=== PATIENT | female | born 1955 | race Caucasian/White ===

== ENCOUNTER 2017-06-02 19:00 | Emergency (ER) | payer MEDICARE, MEDICAID ==
[2017-06-02 21:33] LABS: #Basophils 0.1 thou/uL (0.0-0.2); #Eosinphils 0.2 thou/uL (0.0-0.7); #Lymphocytes 1.6 thou/uL (1.20-3.40); #Monocytes 0.6 thou/uL (0.11-0.59); #Neutrophils 2.5 thou/uL (1.40-6.50); %Basophils 1.1 % (0.0-1.0); %Lymphocytes 32.6 % (21.0-51.0); %Monocytes 12.1 % (0.0-10.0); Hematocrit 33.1 % (36.0-47.0); Mean Platelet Volume 7.3 fL (7.4-10.4); Red Blood Cell (RBC) Count 3.79 mill/uL (4.20-5.40); White Blood Cell (WBC) Count 4.9 thou/uL (4.8-10.8)
[2017-06-02 21:52] LABS: Troponin I Less than 0.010 ng/mL (< 0.028)
[2017-06-02 21:53] LABS: ALT (SGPT) 13 U/L (8-55); AST (SGOT) 20 U/L (5-34); Alkaline Phosphatase 91 U/L (40-150); Anion Gap 18 mmol/L (10-20); BUN (Urea Nitrogen) 40 mg/dL (9.8-20.1); Bilirubin, Total 0.3 mg/dL (0.2-1.2); Calc. Creatinine Clearance 0 mL/min (70-130); Calcium 8.3 mg/dL (7.8-10.44); Carbon Dioxide 16 mmol/L (22-29); Chloride 107 mmol/L (98-107); Estimated GFR-MDRD 47; Globulin 2.9 g/dL (2.4-3.5); Protein, Total 6.5 g/dL (6.0-8.3)
== END 2017-06-02 23:20 | disposition home or self-care (01) ==
LOC: ERS 19:00
DX: R42 Dizziness and giddiness (principal); J43.9 Emphysema, unspecified; I11.0 Hypertensive heart disease with heart failure; I50.9 Heart failure, unspecified; F17.210 Nicotine dependence, cigarettes, uncomplicated; Z86.73 Personal history of transient ischemic attack (TIA), and cerebral infarction without residual deficits; Z79.82 Long term (current) use of aspirin; Z79.899 Other long term (current) drug therapy
CPT/HCPCS: 36415; 80053; 82553; 83880; 84484; 85025; 96360; 96361

== ENCOUNTER 2017-09-16 18:29 | Emergency (ER) | payer MEDICARE, MEDICAID ==
[~2017-09-16 18:29] MED LIST: ISOVUE-370 76%-LOCM 1 ML ONE
[2017-09-16 20:16] LABS: #Lymphocytes 0.9 thou/uL (1.20-3.40); #Monocytes 0.6 thou/uL (0.11-0.59); %Basophils 0.3 % (0.0-1.0); %Eosinophils 0.3 % (0.0-10.0); %Monocytes 4.1 % (0.0-10.0); %Neutrophils 89.4 % (42.0-75.0); Hemoglobin 11.2 g/dL (12.0-16.0); Mean Corpuscular HGB CONC 33.1 g/dL (32.0-36.0); Mean Corpuscular Hemoglobin 28.3 pg (27.0-31.0); Mean Corpuscular Volume 85.4 fl (81.0-99.0); Platelet Count 183 thou/uL (130-400); RBC Distribution Width 12.7 % (11.5-14.5); Red Blood Cell (RBC) Count 3.97 mill/uL (4.20-5.40); White Blood Cell (WBC) Count 14.5 thou/uL (4.8-10.8)
[2017-09-16 20:21] LABS: Prothrombin Time 13.3 SEC (12.0-14.7)
[2017-09-16 20:42] LABS: ALT (SGPT) 7 U/L (8-55); AST (SGOT) 14 U/L (5-34); Albumin 3.9 g/dL (3.4-4.8); Alkaline Phosphatase 79 U/L (40-150); Anion Gap 16 mmol/L (10-20); BUN (Urea Nitrogen) 31 mg/dL (9.8-20.1); Bilirubin, Total 0.6 mg/dL (0.2-1.2); Calc. Creatinine Clearance 0 mL/min (70-130); Calcium 9.7 mg/dL (7.8-10.44); Carbon Dioxide 22 mmol/L (23-31); Chloride 101 mmol/L (98-107); Estimated GFR-MDRD 52; Globulin 3.1 g/dL (2.4-3.5); Glucose 100 mg/dL (80-115); Potassium 5.3 mmol/L (3.5-5.1); Sodium 134 mmol/L (136-145)
[2017-09-16 20:44] LABS: CKMB 0.4 ng/mL (0-6.6); Troponin I Less than 0.010 ng/mL (< 0.028)
--- NOTE | 2017-09-16 20:55 | RAD ---
PORTABLE CHEST ONE VIEW 09/16/17 at 6:31 p.m. HISTORY: Cough. FINDINGS: Comparison made with exam dated 01/02/17. Changes of COPD are again seen. The heart size is normal. The lungs are well expanded without conflue nt areas of consolidation, pneumothorax or pleural effusions. IMPRESSION: No evidence of acute cardiopulmonary process. POS: [facility]
[2017-09-16 21:07] LABS: Bilirubin Negative (Negative); Blood, Urine Small (Negative); Clarity TURBID (Clear); Glucose, Urine (Dipstick) Negative (Negative); Leukocyte Large (Negative); Nitrite Negative (Negative); Protein, Urine (Dipstick) 100 mg/dL (Neg-Trace); Specific Gravity, Urine 1.009 (1.002-1.036); Urobilinogen 0.2 mg/dL (0.2-1.0); pH, Urine 7.5 (5.0-9.0)
[2017-09-16 21:09] LABS: Bacteria/HPF 4+ HPF (None Seen); Pathc Cast-AUWi Flag 0.52 (0-2.49); RBC/HPF 0-3 HPF (0-3); Squamous Epithelial 0-3 HPF (0-3)
[2017-09-16 21:18] LABS: Yeast-AUWi Flag 34.6 (0-25.0)
[2017-09-16 21:25] LABS: Hyaline Casts/LPF 0-3 HYALINE CAST LPF (0-3 Hyaline); Yeast-All Forms None Seen HPF (None Seen)
[2017-09-16] MEDS ORDERED: Piperacillin/Tazobactam 4.5 GM in Sodium Chloride 0.9% 100 ML IVPB SCH (22:30)
--- NOTE | 2017-09-16 22:59 | CT ---
CT ABDOMEN AND PELVIS WITH IV CONTRAST 09/16/17 HISTORY: Abdominal pain. Fever, cough, nausea and vomiting, shortness of breath. FINDINGS: Comparison made with exam of 02/21/16. Chronic changes in the lung bases are again noted. The 5-6 mm parenchymal nodule in the right lung ba se is stable. No free air, free fluid or lymphadenopathy seen in the abdomen or pelvis. No calcified gallstones are seen. The liver, spleen, pancreas, and adrenal glands are normal. Scarring in the renal cortices bilaterall y is stable. No hydroureteronephrosis is seen. There is fecal material in the colon and contrast in t he rectosigmoid. A right sided colostomy and a left sided ileostomy are again seen. the small bowel l oops are not abnormally dilated. There is continued absence of contrast in the abdominal aorta and il iac vasculature distal to the origin of the renal arteries. The uterus is present. Postop changes in the abdomen and pelvis are redemonstrated. Chronic bony changes are again seen. IMPRESSION: No definite evidence of acute process. POS: [facility]
--- NOTE | 2017-10-19 21:25 | EKG ---
Test Reason : Blood Pressure : / mmHG Vent. Rate : 090 BPM Atrial Rate : 090 BPM P-R Int : 130 ms QRS Dur : 072 ms QT Int : 348 ms P-R-T Axes : 082 023 075 degrees QTc Int : 425 ms Normal sinus rhythm Right atrial enlargement Borderline ECG Confirmed by ANITA Us, GENNARO ([id number]), map editor YANI DECKER ([id number]) on 10/19/2017 9:25:34 PM Referred By: Confirmed By:GENNARO HOWARD M.D.
== END 2017-09-17 01:19 | disposition home or self-care (01) ==
LOC: ERS 18:29
DX: J44.1 Chronic obstructive pulmonary disease with (acute) exacerbation (principal); N39.0 Urinary tract infection, site not specified; I11.0 Hypertensive heart disease with heart failure; I50.9 Heart failure, unspecified; F17.210 Nicotine dependence, cigarettes, uncomplicated; Z79.82 Long term (current) use of aspirin; Z79.899 Other long term (current) drug therapy; Z71.6 Tobacco abuse counseling; Z86.73 Personal history of transient ischemic attack (TIA), and cerebral infarction without residual deficits
CPT/HCPCS: 36415; 71045; 74177; 80053; 81003; 81015; 82553; 83735; 83880; 84484; 85025; 85610; 87040; 87086; 87804; 93005; 94640; 94760; 96361; 96365; 96375; 99406; J0696; J2543; J7050; J7620

== ENCOUNTER 2017-10-08 04:29 | Inpatient (IN) | payer MEDICARE, MEDICAID ==
[2017-10-08 06:39] LABS: Band 4 % (5-11); Eosinophils 1 % (0-10); Hemoglobin 10.2 g/dL (12.0-16.0); Lymphocytes 16 % (21-51); MDiff Complete? YES; Mean Corpuscular HGB CONC 31.7 g/dL (32.0-36.0); Mean Corpuscular Volume 85.4 fl (81.0-99.0); Monocytes 2 % (0-10); Neutrophil 77 % (42-75); PLT Morphology Comment Appears Adequate; Platelet Count 158 thou/uL (130-400); RBC Distribution Width 13.7 % (11.5-14.5); Red Blood Cell (RBC) Count 3.77 mill/uL (4.20-5.40); White Blood Cell (WBC) Count 5.6 thou/uL (4.8-10.8)
[2017-10-08 06:45] LABS: ALT (SGPT) 21 U/L (8-55); AST (SGOT) 27 U/L (5-34); Albumin 3.3 g/dL (3.4-4.8); Alkaline Phosphatase 68 U/L (40-150); Anion Gap 14 mmol/L (10-20); BUN (Urea Nitrogen) 46 mg/dL (9.8-20.1); Bilirubin, Total 0.2 mg/dL (0.2-1.2); Calc. Creatinine Clearance 0 mL/min (70-130); Calcium 9.2 mg/dL (7.8-10.44); Carbon Dioxide 19 mmol/L (23-31); Chloride 107 mmol/L (98-107); Estimated GFR-MDRD 56; Glucose 141 mg/dL (80-115); Protein, Total 6.3 g/dL (6.0-8.3); Sodium 133 mmol/L (136-145)
[2017-10-08 06:57] LABS: Potassium 7.3 mmol/L (3.5-5.1)
[2017-10-08] MEDS ORDERED: Calcium Gluc 4.6 MEQ/10 ML (100 MG/ML) ONE ×2 (07:34→07:37)
[2017-10-08] MEDS ORDERED: Dextrose 50% Abboject 50 ML SYRINGE ONE (07:34)
[2017-10-08] MEDS ORDERED: Insulin Regular 300 UNITS/3 ML VIAL ONE (07:34)
--- NOTE | 2017-10-08 07:52 | RAD ---
PORTABLE CHEST ONE VIEW: Date: 10-08-17 Time: 5:37 a.m. History: Dyspnea. Weakness. FINDINGS: Comparison made with 09-16-17. Changes of COPD are again seen. The heart size is normal. No confluent areas of consolidation, pneumo thorax or pleural effusions identified. IMPRESSION: No acute process. POS: [facility]
[2017-10-08] MEDS ORDERED: Albuterol Sulfate 2.5 mg/0.5 ml Neb ONE (07:53)
[2017-10-08] MEDS ORDERED: Sodium Bicarbonate 2.4 MEQ/5 ML ONE (07:54)
[2017-10-08] MEDS ORDERED: Albuterol Sulfate 2.5 mg/3 ml Neb ONE (07:54)
[2017-10-08] MEDS ORDERED: Furosemide 40 MG/4 ML VIAL SLOW IVP SCH (08:30)
--- NOTE | 2017-10-08 09:13 | CON ---
DATE OF CONSULTATION: 10/08/2017 CONSULTING PHYSICIAN: Marian Brown M.D. REQUESTING PHYSICIAN: ER physician. REASON FOR CONSULTATION: Severe symptomatic hyperkalemia. IMPRESSION: 1. Severe hyperkalemia, query cause, patient is on lisinopril, though the patient has been on this m edication for years. No old history of potassium ingestion. 2. Bradycardia. This is likely in the context of severe hyperkalemia. PLAN: 1. Securing dialysis catheter in this patient that is a bilateral amputee is quite challenging. The refore, we will optimize medical intervention in the way of calcium gluconate, Kayexalate, dextrose, insulin, albuterol, and bicarbonate infusion. 2. We will repeat the chemistry in an hour and if the patient remains severely hyperkalemic, we will proceed with dialytic intervention. HISTORY OF PRESENT ILLNESS: History is that of a 62-year-old female patient with history of COPD who presented here with what was thought to be pneumonitis. The patient noted with shortness of breath; however, on clinical evaluation, the patient was noted to be severely hyperkalemic with potassium of 7.3 and a bicarb of 19. The patient also noted to be bradycardic. As a result of these findings, t he decision has been taken to involve Renal in the management of this case. PAST MEDICAL HISTORY: COPD, systolic congestive heart failure with ejection fraction in the range of 35-40%, hypertension, CVA, paraplegia status post bilateral amputation, chronic decubitus ulcers. MEDICATIONS: Reviewed as documented on [employer]. ALLERGIES: No known drug allergies. FAMILY HISTORY: None significantly related to the presenting complaint. SOCIAL HISTORY: The patient is . She is a tobacco user and lives with a friend. REVIEW OF SYSTEMS: As documented in the body of the history. The other systems were reviewed and we re found not to be significantly related to the presenting illness. PHYSICAL EXAMINATION: GENERAL: The patient is currently undergoing a breathing treatment with albuterol, otherwise hemodyn amically stable. VITAL SIGNS: Heart rate has improved to the 70s, afebrile. HEENT: Unremarkable. Dry oral mucosa. Neck is supple. No conjunctival injection or icterus. CARDIOVASCULAR SYSTEM: First and second heart sounds were heard. RESPIRATORY SYSTEM: Reveals some transmitted sounds from the face mask. DIGESTIVE SYSTEM: Revealed a benign abdomen. EXTREMITIES: No peripheral edema. NEUROLOGIC: Alert, no lateralizing signs. LYMPHATICS: No peripheral lymphadenopathy. SUMMARY: A 62-year-old female patient who presented here with respiratory distress, incidentally not ed to be severely hyperkalemic with significant bradycardia. Thank you for this consultation. We will follow with you.
[2017-10-08] MEDS ORDERED: Furosemide 40 MG/4 ML VIAL ONE (09:30)
[2017-10-08] MEDS ORDERED: Artificial Tears 18 DROP/0.9 ML EA EYE PRN (09:32)
[2017-10-08] MEDS ORDERED: Ondansetron HCl/PF 4 MG/2 ML Vial IVP PRN (09:32)
[2017-10-08] MEDS ORDERED: Sodium Chloride 0.65% Nasal 44 ML BOT EA NARE PRN (09:32)
[2017-10-08] MEDS ORDERED: Loperamide HCl 2 MG CAP PO PRN (09:32)
[2017-10-08] MEDS ORDERED: Loratadine 10 MG TAB PO PRN (09:32)
[2017-10-08] MEDS ORDERED: Zolpidem Tartrate 5 MG TAB PO PRN (09:32)
[2017-10-08] MEDS ORDERED: Mag-Al 1200 mg/1200 mg/30 ML UDCUP PO PRN (09:32)
[2017-10-08] MEDS ORDERED: hydrALAZINE 20 MG/ML VIAL SLOW IVP PRN (09:32)
[2017-10-08] MEDS ORDERED: Senokot 8.6 MG TAB PO PRN (09:32)
[2017-10-08] MEDS ORDERED: Eucerin (Mineral Oil/Petrolatum,White) 30 gm Jar TOP PRN (09:32)
[2017-10-08] MEDS ORDERED: Ondansetron ODT 4 MG TAB PO PRN (09:32)
[2017-10-08] MEDS ORDERED: HYDROcodone/Acetaminophen 5/325 mg Tablet PO PRN (09:32)
[2017-10-08] MEDS ORDERED: Diabetic Tussin 200 MG/10 ML UDCUP PO PRN (09:32)
[2017-10-08] MEDS ORDERED: Acetaminophen 325 MG TAB PO PRN (09:32)
[2017-10-08] MEDS ORDERED: Milk Of Magnesia 30 ML UDCUP PO PRN (09:32)
[2017-10-08] MEDS ORDERED: Chloraseptic Spray 180 ml Bottle PO PRN (09:32)
[2017-10-08 14:03] LABS: Anion Gap 11 mmol/L (10-20); BUN (Urea Nitrogen) 41 mg/dL (9.8-20.1); Calc. Creatinine Clearance 0 mL/min (70-130); Calcium 8.7 mg/dL (7.8-10.44); Carbon Dioxide 30 mmol/L (23-31); Chloride 97 mmol/L (98-107); Estimated GFR-MDRD 59; Glucose 140 mg/dL (80-115); Potassium 4.2 mmol/L (3.5-5.1); Sodium 134 mmol/L (136-145)
--- NOTE | 2017-10-08 14:49 | HP ---
PRIMARY CARE PHYSICIAN: Wendy Lawrence D.O. REASON FOR ADMISSION: Hyperkalemia. HISTORY OF PRESENT ILLNESS: A 62-year-old female, who has bilateral lower extremity amputation, as well as she has history of underlying COPD. She was recently required emergency room visit on 09/16/2017, at that patient was diagnosed with COPD exacerbation and UTI. Patient was given prednisone and Augmentin for 10 days. The patient also went to [facility] Emergency Room and from the emergency room, she was discharged, at that time, the patient was having exactly similar problem. Patient was given levofloxacin. The patient was also given a Medrol Dosepak. The patient is also taking lisinopril , but she is taking for the last several years. Patient reports that periodically she gets Levaquin and Augmentin, but she never had hyperkalemia before and patient reports that she is not eating any potassium rich food. Today, patient mainly came to the ER because she was having relatively low blood pressure and she was feeling weak. At home, her blood pressure was 87/34 and the patient's blood pressure was also running on lower side at home. Patient was also having on and off fever, cough productive of white sputum at home and she is on chronic oxygen therapy at home with 2-3 liters of nasal cannula. Today, she came to the emergency room for this reason and the patient had routine blood test done, which showed bandemia as well as hyperkalemia and that is why we are admitting this patient in hospital. Dr. Fonseca already evaluated this patient in the emergency room and he recommended medical therapy. REVIEW OF SYSTEMS: The following complete review of systems was negative, unless otherwise mentioned in the HPI or below: Constitutional: Weight loss or gain, ability to conduct usual activities. Skin : Rash, itching. Eyes: Double vision, pain. ENT/Mouth: Nose bleeding, neck stiffness, pain, tenderness. Cardiovascular: Palpitations, dyspnea on exertion, orthopnea. Respiratory: Shortness of breath, wheezing, cough, hemoptysis, fever or night sweats. Gastrointestinal: Poor appetite, abdominal pain, heartburn, nausea, vomiting, constipation, or diarrhea. Genitourinary: Urgency, frequency, dysuria, nocturia. Musculoskeletal: Pain, swelling. Neurologic/Psychiatric: Anxiety, depression. Allergy/Immunologic: Skin rash, bleeding tendency. Please see my HPI for pertinent positives and negatives. All other review of systems reviewed and negative except as mentioned in the HPI. ALLERGIES: No known drug allergies. CURRENT HOME MEDICATIONS: Amlodipine 5 mg p.o. daily, lisinopril 10 mg p.o. daily, Coreg 6.25 mg p.o. b.i.d., aspirin 325 mg p.o. daily, Augmentin 500 mg twice daily, Levaquin 500 mg p.o. daily, diazepam as needed, Tylenol No. 3 one tablet q.6 hours p.r.n., and Medrol Dosepak as directed. PAST MEDICAL HISTORY: 1. COPD, chronic systolic heart failure with EF 35% to 40%. Based on most recent echocardiography, patient has improvement in EF to 45% to 50% with diastolic dysfunction and moderate aortic regurgitation. 2. Hypertension. 3. History of CVA. 4. History of bilateral amputee. 5. History of chronic decubitus ulcer. 6. Small-bowel obstruction in 2008. PAST PSYCHIATRIC HISTORY: Anxiety and depression. PAST SURGICAL HISTORY: Left kidney surgery, right carotid artery surgery, bilateral amputation, urostomy, history of colostomy, tubal ligation. SOCIAL HISTORY: Patient is smoking about half to 1 pack per day. She is trying to reduce smoking, but still smoking depending upon her mood. She denies any alcohol abuse. She denies any other illicit drug abuse. She lives with her daughter. FAMILY HISTORY: No strong family history of coronary artery disease or stroke, but family history positive for COPD and various type of cancer in a different family members. EMERGENCY ROOM COURSE: Patient is getting bicarbonate drip, Kayexalate, Lasix 40 mg, albuterol nebulization, dextrose 50 with Novolin 10 units, calcium gluconate 1 ampule. PHYSICAL EXAMINATION: VITAL SIGNS: Currently, blood pressure 107/44 that improved to 151/61, pulse 55 , respiratory rate initially 28, temperature 97.3, saturation 96% on room air, weight 30 kilograms. GENERAL: Patient is currently alert, awake, no obvious acute distress. HEENT: Normocephalic, atraumatic. Eyes: Pupils round, reactive to light. Extraocular muscles intact. ENT: Oropharynx within normal limits. Moist mucous membranes. No oral lesions. No pharyngeal erythema, no exudate. NECK: Supple, no JVD, no thyromegaly, no carotid bruit, no jugular venous distention. LUNGS: Bilateral end expiratory wheezing heard, coarse breath sounds noted, but no rales. No accessory muscles of respiration use. CARDIAC: S1, S2 regular. No murmur, no gallop, no rub. ABDOMEN: Soft, bowel sounds present, nontender, nondistended. No organomegaly , no mass, no suprapubic tenderness. BACK: Unremarkable. No CVA tenderness. EXTREMITIES: Upper extremity passive movement of all joints are normal. Lower extremity: Patient is bilaterally lower extremity amputated. NEUROLOGIC: Unable to assess at this point, but grossly nonfocal examination. Her speech is normal and she is moving both upper extremities. SKIN: No skin rash, no decubitus ulcer. PSYCHIATRIC: Normal affect. HEMATOLOGIC: No lymphadenopathy. IMAGING DATA: 1. EKG showing sinus bradycardia without any significant abnormality, sinus arrhythmia noted. 2. Chest x-ray based on my review, no acute cardiopulmonary process. SIGNIFICANT LABORATORY DATA: CBC: WBC 5.6, hemoglobin 10.2, platelets 158, bandemia. BMP: Sodium 133, potassium 7.3, chloride 107, carbon dioxide 19, anion gap 14, BUN 46, creatinine 1.0, glucose 141, calcium 9.2. LFT: AST 27, ALT 21, alkaline phosphatase 68, albumin 3.3. ASSESSMENT AND PLAN: 1. Acute hyperkalemia, etiology uncertain, but I am suspecting that patient was recently given Augmentin, which has potassium, clavulanic acid as well as patient is on lisinopril and patient was also recently prescribed a couple of times a steroid pack that might have contributed to her hyperkalemia. She does not have an end-stage renal disease and at this point Nephrology consulted from ER and patient is started on bicarbonate drip and Lasix is given calcium chloride in glucose insulin is given in the emergency room and Kayexalate is also given. We will repeat a BMP later on today to see response of potassium. The patient is given instructions to avoid Augmentin and we will hold on lisinopril today. Low potassium diet advised to the patient. 2. Hypotension at home, but currently resolved. We will continue bicarbonate drip and blood pressure medication will resume and blood pressure allows us to start her antihypertensive medication. At that time we will start amlodipine and Coreg. 3. Anemia, normocytic, normochromic. Patient will need ferrous sulfate 325 mg p.o. daily, multivitamin therapy. 4. Chronic obstructive pulmonary disease with mild exacerbation. Patient will be given DuoNeb every 6 hourly p.r.n., Dulera 2 puffs inhalation b.i.d., and empiric antibiotic therapy with Levaquin 250 mg IV daily. 5. Chronic systolic congestive heart failure. The patient has improvement in EF to 45% to 50%. She also has underlying diastolic heart failure. She has underlying aortic regurgitation and currently patient is euvolemic. We will watch for any fluid overload status and patient already received Lasix 40 mg IV in the emergency room. Tobacco abuse disorder. Smoking cessation counseling given. Healthy lifestyle measures discussed with the patient 6. History of hypertension as mentioned above. If blood pressure permits, then I will continue Coreg and amlodipine. We will hold on lisinopril therapy. 7. Bandemia. May be related with her recent steroid use, but underlying infection cannot be entirely excluded. We will continue empiric levofloxacin therapy while in hospital. 8. Deep venous thrombosis prophylaxis. Lovenox 30 mg subcutaneously daily. 9. Gastrointestinal prophylaxis. Pepcid 20 mg p.o. b.i.d. CODE STATUS: I spoke with the patient and patient's daughter and they wanted to continue FULL CODE status. Disposition plan based on clinical course. We are expecting patient's stay in the hospital more than 2 midnights. During this admission, I will also check influenza screen, urinalysis, and will repeat labs tomorrow. [facility]
[2017-10-08] MEDS ORDERED: Carvedilol 6.25 MG TAB PO SCH (17:00)
[2017-10-08] MEDS: Sodium Bicarbonate 150 MEQ in Dextrose 5% in Water 1,000 ML IV SCH ×4 (18:45→22:13)
[2017-10-08] MEDS: Mometasone/Formoterol 120 PUFF INHALER INH SCH (18:48)
[2017-10-08 19:52] LABS: Anion Gap 13 mmol/L (10-20); BUN (Urea Nitrogen) 42 mg/dL (9.8-20.1); Calc. Creatinine Clearance 31 mL/min (70-130); Calcium 8.4 mg/dL (7.8-10.44); Carbon Dioxide 36 mmol/L (23-31); Chloride 93 mmol/L (98-107); Estimated GFR-MDRD 58; Glucose 111 mg/dL (80-115); Potassium 4.8 mmol/L (3.5-5.1); Sodium 137 mmol/L (136-145)
[2017-10-08 20:00] LABS: Bilirubin Negative (Negative); Blood, Urine Negative (Negative); Clarity CLOUDY (Clear); Glucose, Urine (Dipstick) Negative (Negative); Leukocyte Negative (Negative); Nitrite Negative (Negative); Protein, Urine (Dipstick) Negative (Neg-Trace); Specific Gravity, Urine 1.006 (1.002-1.036); Urobilinogen 0.2 mg/dL (0.2-1.0); pH, Urine 8.5 (5.0-9.0)
[2017-10-08 20:04] LABS: Bacteria/HPF 1+ HPF (None Seen); Hyaline Casts/LPF 0-3 HYALINE CAST LPF (0-3 Hyaline); RBC/HPF 0-3 HPF (0-3); Squamous Epithelial None Seen HPF (0-3); WBC/HPF 0-3 HPF (0-3)
[2017-10-08] MEDS: Famotidine 20 MG TAB PO SCH (21:55)
[2017-10-09 04:57] LABS: #Eosinphils 0.1 thou/uL (0.0-0.7); #Lymphocytes 1.8 thou/uL (1.20-3.40); #Monocytes 0.5 thou/uL (0.11-0.59); #Neutrophils 1.6 thou/uL (1.40-6.50); %Eosinophils 2.7 % (0.0-10.0); %Lymphocytes 45.4 % (21.0-51.0); %Monocytes 13.2 % (0.0-10.0); %Neutrophils 38.7 % (42.0-75.0); Hemoglobin 9.5 g/dL (12.0-16.0); Mean Corpuscular HGB CONC 32.9 g/dL (32.0-36.0); Mean Corpuscular Hemoglobin 28.2 pg (27.0-31.0); Mean Corpuscular Volume 85.8 fl (81.0-99.0); Mean Platelet Volume 7.8 fL (7.4-10.4); Platelet Count 154 thou/uL (130-400); RBC Distribution Width 13.6 % (11.5-14.5); Red Blood Cell (RBC) Count 3.37 mill/uL (4.20-5.40)
[2017-10-09 05:15] LABS: ALT (SGPT) 12 U/L (8-55); AST (SGOT) 14 U/L (5-34); Albumin 2.6 g/dL (3.4-4.8); Alkaline Phosphatase 67 U/L (40-150); BUN (Urea Nitrogen) 35 mg/dL (9.8-20.1); Bilirubin, Total 0.2 mg/dL (0.2-1.2); Calc. Creatinine Clearance 36 mL/min (70-130); Calcium 7.7 mg/dL (7.8-10.44); Estimated GFR-MDRD 64; Globulin 2.3 g/dL (2.4-3.5); Glucose 107 mg/dL (80-115); Protein, Total 4.9 g/dL (6.0-8.3)
[2017-10-09 05:36] LABS: Chloride 91 mmol/L (98-107); Potassium 3.4 mmol/L (3.5-5.1); Sodium 139 mmol/L (136-145)
[2017-10-09 05:58] LABS: Anion Gap 14 mmol/L (10-20); Carbon Dioxide 37 mmol/L (23-31)
[2017-10-09] MEDS: Mometasone/Formoterol 120 PUFF INHALER INH SCH ×2 (06:46→19:30)
[2017-10-09] MEDS: Sodium Bicarbonate 150 MEQ in Dextrose 5% in Water 1,000 ML IV SCH ×2 (07:46)
[2017-10-09 08:02] VITALS: BMI 10.5
[2017-10-09] MEDS: Amlodipine 5 MG TAB PO SCH (08:37)
[2017-10-09] MEDS: Aspirin 325 MG TAB PO SCH (08:37)
[2017-10-09] MEDS: Ferrous Sulfate 325 MG TAB PO SCH (08:37)
[2017-10-09] MEDS: Enoxaparin Sodium 30 MG/0.3 ML SYRINGE SC SCH (08:37)
[2017-10-09] MEDS: Carvedilol 3.125 MG TAB PO SCH ×2 (08:37→20:51)
[2017-10-09] MEDS: Famotidine 20 MG TAB PO SCH ×2 (08:37→20:51)
[2017-10-09] MEDS: Multivitamin W/ Minerals 1 TAB PO SCH (08:37)
[2017-10-09] MEDS ORDERED: Amlodipine 10 MG TAB PO SCH (09:00)
--- NOTE | 2017-10-09 10:44 | PDOC.PN ---
- Subjective Encounter Start Date: 10/09/17 Encounter Start Time: 08:30 -: old records requested/rev Patient seen and examined. No new complaints. No overnight events has cough - Objective Resuscitation Status: Resuscitation Status FULL:Full Resuscitation MAR Reviewed: Yes Vital Signs & Weight: Vital Signs (12 hours) Temp Pulse Resp BP BP BP BP 10/09/17 08:40 98 F 81 16 10/09/17 08:37 81 142/67 H 10/09/17 08:34 98 F 81 16 142/67 H 10/09/17 06:46 78 16 10/09/17 04:00 98.5 F 69 16 117/58 L 10/09/17 00:22 98.2 F 68 18 124/56 L Pulse Ox 10/09/17 08:40 96 10/09/17 08:37 10/09/17 08:34 96 10/09/17 06:46 10/09/17 04:00 99 10/09/17 00:22 98 Weight Admit Weight 70 lb 1 oz Weight 75 lb 4.8 oz I&O: 10/08/17 10/09/17 10/10/17 06:59 06:59 06:59 Intake Total 740 240 Output Total 900 800 Balance -160 -560 Result Diagrams: 10/09/17 04:28 10/09/17 04:28 EKG Reviewed by me: Yes (nsr) Phys Exam - Physical Examination Constitutional: NAD HEENT: PERRLA, moist MMs, sclera anicteric Neck: no JVD, supple coarse breath sound Cardiovascular: RRR, no significant murmur, no rub Gastrointestinal: soft, non-tender, no distention, positive bowel sounds Lymphatic: no nodes Psychiatric: normal affect, A&O x 3 Skin: no rash, normal turgor Dx/Plan (1) Hyperkalemia Code(s): E87.5 - HYPERKALEMIA Status: Resolved (2) Anemia, normocytic normochromic Code(s): D64.9 - ANEMIA, UNSPECIFIED Status: Chronic (3) CHF (congestive heart failure) Code(s): I50.9 - HEART FAILURE, UNSPECIFIED Status: Chronic Qualifiers: Congestive heart failure type: combined Congestive heart failure chronicity : chronic Qualified Code(s): I50.42 - Chronic combined systolic (congestive) and diastolic (congestive) heart failure (4) Cardiomyopathy Code(s): I42.9 - CARDIOMYOPATHY, UNSPECIFIED Status: Chronic Qualifiers: (5) HTN (hypertension) Code(s): I10 - ESSENTIAL (PRIMARY) HYPERTENSION Status: Chronic Qualifiers: (6) Tobacco abuse disorder Code(s): Z72.0 - TOBACCO USE Status: Chronic - Plan cont current plan of care, continue antibiotics, respiratory therapy * DC Bicarbonate drip * repeat labs tomorrow * continue IV levaquin and respiratory therapy * medication reviewed as below * symptomatic treatment. Review of Systems - Review of Systems Constitutional: negative: fever, chills, sweats, weakness, malaise, other Respiratory: Cough, Shortness of Breath, Sputum. negative: Dry, Hemoptysis, SOB with Excertion, Pleuritic Pain, Wheezing Cardiovascular: negative: chest pain, palpitations, orthopnea, paroxysmal nocturnal dyspnea, edema, light headedness, other Gastrointestinal: negative: Nausea, Vomiting, Abdominal Pain, Diarrhea, Constipation, Melena, Hematochezia, Other Genitourinary: negative: Dysuria, Frequency, Incontinence, Hematuria, Retention , Other - Medications/Allergies Allergies/Adverse Reactions: Allergies Allergy/AdvReac Type Severity Reaction Status Date / Time No Known Drug Allergies Allergy Verified 10/21/15 14:27 Medications: Current Medications Acetaminophen (Tylenol) 650 mg PO Q4H PRN PRN Reason: Headache/Fever or Pain Hydrocodone Bitart/Acetaminophen ([place] 5/325) 1 tab PO Q4H PRN PRN Reason: Moderate Pain (4-6) Al Hydroxide/Mg Hydroxide (Maalox) 30 ml PO Q6H PRN PRN Reason: Heartburn or Indigestion Albuterol/Ipratropium (Duoneb) 3 ml NEB [id number] PRN PRN Reason: SOB &/or Wheezing Amlodipine Besylate (Norvasc) 5 mg PO DAILY [facility] Last Admin: 10/09/17 08:37 Dose: 5 mg Artificial Tears (Tears Naturale) 0 drop EA EYE PRN PRN PRN Reason: Dry Eyes Aspirin (Aspirin) 325 mg PO DAILY [facility] Last Admin: 10/09/17 08:37 Dose: 325 mg Carvedilol (Coreg) 3.125 mg PO BID [facility] Last Admin: 10/09/17 08:37 Dose: 3.125 mg Enoxaparin Sodium (Lovenox) 30 mg SC 0900 [facility] Last Admin: 10/09/17 08:37 Dose: 30 mg Famotidine (Pepcid) 20 mg PO BID [facility] Last Admin: 10/09/17 08:37 Dose: 20 mg Ferrous Sulfate (Feosol) 325 mg PO QAM-WM [facility] Last Admin: 10/09/17 08:37 Dose: 325 mg Guaifenesin (Robitussin Sf) 200 mg PO Q4H PRN PRN Reason: Cough Hydralazine HCl (Apresoline) 10 mg SLOW IVP Q4H PRN PRN Reason: Systolic BP > 180 Levofloxacin 250 mg/ Device 50 mls @ 100 mls/hr IVPB 1500 [facility] Last Admin: 10/08/17 19:37 Dose: Not Given Iron/Minerals/Multivitamins (Theragran M) 1 tab PO DAILY [facility] Last Admin: 10/09/17 08:37 Dose: 1 tab Loperamide HCl (Imodium) 2 mg PO PRN PRN PRN Reason: Diarrhea/Loose Stools Loratadine (Claritin) 10 mg PO DAILYPRN PRN PRN Reason: Sinus Symptoms Magnesium Hydroxide (Milk Of Magnesium) 30 ml PO DAILYPRN PRN PRN Reason: Constipation Mineral Oil/White Petrolatum (Eucerin Cream) 0 gm TOP BIDPRN PRN PRN Reason: Dry Skin Mometasone Furoate/Formoterol Fumar (Dulera 200 Mcg/5 Mcg Inhaler) 2 puff INH BID-RT [facility] Last Admin: 10/09/17 06:46 Dose: 2 puff Ondansetron HCl (Zofran Odt) 4 mg PO Q6H PRN PRN Reason: Nausea/Vomiting Ondansetron HCl (Zofran) 4 mg IVP Q6H PRN PRN Reason: Nausea/Vomiting Phenol (Chloraseptic [place] 180 Ml Bot) 0 ml PO PRN PRN PRN Reason: Sore Throat Senna (Senokot) 2 tab PO HSPRN PRN PRN Reason: Constipation Sodium Chloride ([place] Nasal [place] 0.65%) 0 ml EA NARE QIDPRN PRN PRN Reason: Nasal Congestion Zolpidem Tartrate (Ambien) 5 mg PO HSPRN PRN PRN Reason: Insomnia
--- NOTE | 2017-10-09 14:13 | PRG ---
DATE OF SERVICE: 10/09/2017 The patient was seen and examined, seems to be doing much better. PHYSICAL EXAMINATION: VITAL SIGNS: Afebrile with temperature 98.3, pulse 71, respiratory rate 16, O2 sat 98% with a blood pressure 128/61. HEENT: Unremarkable. Moist oral mucosa. Neck was supple. No conjunctival injection or icterus. CARDIOVASCULAR: First and second heart sounds were heard. RESPIRATORY: Clear to auscultation. DIGESTIVE: Revealed a benign abdomen with positive bowel sounds. EXTREMITIES: No peripheral edema. SKIN: No new gross rash. LYMPHATICS: No peripheral lymphadenopathy. LABORATORY INVESTIGATIONS: Showed a potassium 3.4. IMPRESSION: Severe hyperkalemia which seems to have responded to medical treatment. PLAN: 1. We will continue current supportive measures. 2. Discontinue bicarbonate drip as this will enable potassium to shift out of the cells. 3. Further management to be dependent on the clinical course.
[2017-10-10 05:07] LABS: #Eosinphils 0.2 thou/uL (0.0-0.7); #Lymphocytes 1.4 thou/uL (1.20-3.40); #Monocytes 0.5 thou/uL (0.11-0.59); %Eosinophils 4.4 % (0.0-10.0); %Lymphocytes 35.1 % (21.0-51.0); %Monocytes 11.3 % (0.0-10.0); %Neutrophils 49.1 % (42.0-75.0); Hemoglobin 9.7 g/dL (12.0-16.0); Mean Corpuscular HGB CONC 32.7 g/dL (32.0-36.0); Mean Corpuscular Hemoglobin 28.2 pg (27.0-31.0); Mean Corpuscular Volume 86.3 fl (81.0-99.0); Mean Platelet Volume 7.6 fL (7.4-10.4); Platelet Count 157 thou/uL (130-400); RBC Distribution Width 13.4 % (11.5-14.5); Red Blood Cell (RBC) Count 3.44 mill/uL (4.20-5.40)
[2017-10-10 05:36] LABS: Anion Gap 10 mmol/L (10-20); BUN (Urea Nitrogen) 26 mg/dL (9.8-20.1); Calc. Creatinine Clearance 38 mL/min (70-130); Calcium 7.8 mg/dL (7.8-10.44); Carbon Dioxide 34 mmol/L (23-31); Chloride 97 mmol/L (98-107); Estimated GFR-MDRD 70; Glucose 97 mg/dL (80-115); Potassium 4.1 mmol/L (3.5-5.1); Sodium 137 mmol/L (136-145)
[2017-10-10] MEDS: Mometasone/Formoterol 120 PUFF INHALER INH SCH (06:47)
[2017-10-10 09:27] VITALS: BP 170/72; TEMP 97.8
[2017-10-10] MEDS: Ferrous Sulfate 325 MG TAB PO SCH (09:28)
[2017-10-10] MEDS: Famotidine 20 MG TAB PO SCH (09:29)
[2017-10-10] MEDS: Multivitamin W/ Minerals 1 TAB PO SCH (09:29)
[2017-10-10] MEDS: Aspirin 325 MG TAB PO SCH (09:29)
[2017-10-10] MEDS: Carvedilol 3.125 MG TAB PO SCH (09:29)
[2017-10-10] MEDS: Amlodipine 5 MG TAB PO SCH (09:29)
[2017-10-10] MEDS: Enoxaparin Sodium 30 MG/0.3 ML SYRINGE SC SCH (09:29)
--- NOTE | 2017-10-10 10:46 | PDOC.PN ---
- Subjective Encounter Start Date: 10/10/17 Encounter Start Time: 07:50 Patient seen and examined. No new complaints. No overnight events - Objective Resuscitation Status: Resuscitation Status FULL:Full Resuscitation MAR Reviewed: Yes Vital Signs & Weight: Vital Signs (12 hours) Temp Pulse Resp BP BP Pulse Ox 10/10/17 09:27 97.8 F 79 18 170/72 H 96 10/10/17 06:47 73 16 100 10/10/17 00:50 97.9 F 75 16 118/58 L 96 Weight Admit Weight 70 lb 1 oz Weight 72 lb 7 oz I&O: 10/09/17 10/10/17 10/11/17 06:59 06:59 06:59 Intake Total 740 240 480 Output Total 900 1800 650 Balance -160 -1560 -170 Result Diagrams: 10/10/17 04:27 10/10/17 04:27 EKG Reviewed by me: Yes Phys Exam - Physical Examination Constitutional: NAD HEENT: PERRLA, moist MMs, sclera anicteric Neck: no JVD, supple Respiratory: no wheezing, no rales, no rhonchi Cardiovascular: RRR, no significant murmur, no rub Gastrointestinal: soft, non-tender, no distention, positive bowel sounds Lymphatic: no nodes Psychiatric: normal affect, A&O x 3 Skin: no rash, normal turgor Dx/Plan (1) Hyperkalemia Code(s): E87.5 - HYPERKALEMIA Status: Resolved (2) Anemia, normocytic normochromic Code(s): D64.9 - ANEMIA, UNSPECIFIED Status: Chronic (3) CHF (congestive heart failure) Code(s): I50.9 - HEART FAILURE, UNSPECIFIED Status: Chronic Qualifiers: Congestive heart failure type: combined Congestive heart failure chronicity : chronic Qualified Code(s): I50.42 - Chronic combined systolic (congestive) and diastolic (congestive) heart failure (4) Cardiomyopathy Code(s): I42.9 - CARDIOMYOPATHY, UNSPECIFIED Status: Chronic Qualifiers: (5) HTN (hypertension) Code(s): I10 - ESSENTIAL (PRIMARY) HYPERTENSION Status: Chronic Qualifiers: (6) Tobacco abuse disorder Code(s): Z72.0 - TOBACCO USE Status: Chronic - Plan cont current plan of care, continue antibiotics * medication reviewed as below * symptomatic treatment * see discharge summery * all new medication prescription sent to pharmacy. Review of Systems - Review of Systems Constitutional: negative: fever, chills, sweats, weakness, malaise, other ENT: negative: Ear Pain, Ear Discharge, Nose Pain, Nose Discharge, Nose Congestion, Mouth Pain, Mouth Swelling, Throat Pain, Throat Swelling, Other Respiratory: negative: Cough, Dry, Shortness of Breath, Hemoptysis, SOB with Excertion, Pleuritic Pain, Sputum, Wheezing Cardiovascular: negative: chest pain, palpitations, orthopnea, paroxysmal nocturnal dyspnea, edema, light headedness, other Gastrointestinal: negative: Nausea, Vomiting, Abdominal Pain, Diarrhea, Constipation, Melena, Hematochezia, Other Genitourinary: negative: Dysuria, Frequency, Incontinence, Hematuria, Retention , Other - Medications/Allergies Allergies/Adverse Reactions: Allergies Allergy/AdvReac Type Severity Reaction Status Date / Time No Known Drug Allergies Allergy Verified 10/21/15 14:27 Medications: Current Medications Acetaminophen (Tylenol) 650 mg PO Q4H PRN PRN Reason: Headache/Fever or Pain Hydrocodone Bitart/Acetaminophen (Marina 5/325) 1 tab PO Q4H PRN PRN Reason: Moderate Pain (4-6) Al Hydroxide/Mg Hydroxide (Maalox) 30 ml PO Q6H PRN PRN Reason: Heartburn or Indigestion Albuterol/Ipratropium (Duoneb) 3 ml NEB [id number] PRN PRN Reason: SOB &/or Wheezing Amlodipine Besylate (Norvasc) 5 mg PO DAILY [facility] Last Admin: 10/10/17 09:29 Dose: 5 mg Artificial Tears (Tears Naturale) 0 drop EA EYE PRN PRN PRN Reason: Dry Eyes Aspirin (Aspirin) 325 mg PO DAILY [facility] Last Admin: 10/10/17 09:29 Dose: 325 mg Carvedilol (Coreg) 3.125 mg PO BID [facility] Last Admin: 10/10/17 09:29 Dose: 3.125 mg Enoxaparin Sodium (Lovenox) 30 mg SC 0900 [facility] Last Admin: 10/10/17 09:29 Dose: 30 mg Famotidine (Pepcid) 20 mg PO BID [facility] Last Admin: 10/10/17 09:29 Dose: 20 mg Ferrous Sulfate (Feosol) 325 mg PO [facility] Last Admin: 10/10/17 09:28 Dose: 325 mg Guaifenesin (Robitussin Sf) 200 mg PO Q4H PRN PRN Reason: Cough Hydralazine HCl (Apresoline) 10 mg SLOW IVP Q4H PRN PRN Reason: Systolic BP > 180 Levofloxacin 250 mg/ Device 50 mls @ 100 mls/hr IVPB 1500 [facility] Last Admin: 10/09/17 14:51 Dose: 50 mls Iron/Minerals/Multivitamins (Theragran M) 1 tab PO DAILY [facility] Last Admin: 10/10/17 09:29 Dose: 1 tab Loperamide HCl (Imodium) 2 mg PO PRN PRN PRN Reason: Diarrhea/Loose Stools Loratadine (Claritin) 10 mg PO DAILYPRN PRN PRN Reason: Sinus Symptoms Magnesium Hydroxide (Milk Of Magnesium) 30 ml PO DAILYPRN PRN PRN Reason: Constipation Mineral Oil/White Petrolatum (Eucerin Cream) 0 gm TOP BIDPRN PRN PRN Reason: Dry Skin Mometasone Furoate/Formoterol Fumar (Dulera 200 Mcg/5 Mcg Inhaler) 2 puff INH BID-RT [facility] Last Admin: 10/10/17 06:47 Dose: 2 puff Ondansetron HCl (Zofran Odt) 4 mg PO Q6H PRN PRN Reason: Nausea/Vomiting Ondansetron HCl (Zofran) 4 mg IVP Q6H PRN PRN Reason: Nausea/Vomiting Phenol (Chloraseptic [place] 180 Ml Bot) 0 ml PO PRN PRN PRN Reason: Sore Throat Senna (Senokot) 2 tab PO HSPRN PRN PRN Reason: Constipation Sodium Chloride ([place] Nasal [place] 0.65%) 0 ml EA NARE QIDPRN PRN PRN Reason: Nasal Congestion Sodium Chloride (Flush - Normal Saline) 10 ml IVF Q12HR [facility] Last Admin: 10/10/17 09:29 Dose: 10 ml Sodium Chloride (Flush - Normal Saline) 10 ml IVF PRN PRN PRN Reason: Saline Flush Zolpidem Tartrate (Ambien) 5 mg PO HSPRN PRN PRN Reason: Insomnia
--- NOTE | 2017-10-10 10:47 | DIS ---
DATE OF ADMISSION: 10/08/2017 DATE OF DISCHARGE: 10/10/2017 PRIMARY CARE PHYSICIAN: Dr. Wendy Lawrence. DISCHARGE DISPOSITION: Home. PRIMARY DISCHARGE DIAGNOSIS: Acute hyperkalemia, resolved. SECONDARY DISCHARGE DIAGNOSES: Normocytic normochromic anemia, chronic systolic and diastolic heart failure, cardiomyopathy, hypertension, tobacco abuse disorder, bilateral lower extremity amputee. PRIMARY PROCEDURE/OPERATION: None. RADIOLOGICAL INVESTIGATION: Chest x-ray was normal. SIGNIFICANT LABORATORY DATA: Hemoglobin 9.7, creatinine 0.83, potassium 4.1. LFTs normal. Potassium on admission was 7.3. Influenza negative. DISCHARGE MEDICATIONS: Tylenol 650 mg q.4 hours p.r.n., albuterol sulfate HFA 2 puffs q.4 hours p.r.n., amlodipine 5 mg p.o. daily, aspirin 325 mg p.o. daily , Symbicort 160/4.5 two puff inhalation b.i.d., Coreg 3.125 mg p.o. b.i.d., Pepcid 20 mg p.o. b.i.d., ferrous sulfate 325 mg p.o. daily, DuoNeb q.6 hourly, Levaquin 250 mg p.o. daily for 7 days, multivitamin 1 tablet p.o. daily, Spiriva 2 puffs inhalation daily. CONTRAINDICATIONS: This time ACEI or ARB not prescribed because of hyperkalemia on admission, if on follow up hyperkalemia does not happen, and BP permits then will consider starting low dose on follow up visit. CODE STATUS: FULL CODE. INPATIENT CONSULTANTS: Dr. Fonseca was consulted while in hospital. TEST RESULTS PENDING ON DISCHARGE: None. ALLERGIES: No known drug allergy. DISCHARGE PLAN: Post hospital, the patient will follow up with primary care physician. HOSPITAL COURSE: A 62-year-old female who was having respiratory symptoms and she was given antibiotic with Augmentin and steroid pack. The patient was already taking lisinopril. She came to the emergency room, because of her low blood pressure, she was taking too many blood pressure medication. She was found incidentally with hyperkalemia and that is why we admitted her in hospital. Dr. Fonseca was consulted. We treated her hyperkalemia medically with calcium chloride, glucose insulin, albuterol nebulization and Kayexalate. The patient was also started on bicarbonate drip. Subsequently, her potassium improved and we discontinued bicarbonate drip. At this point, patient is completely asymptomatic. While in hospital, we continued on levofloxacin based on her weight. The patient is seen and examined at bedside today. The patient is advised to look at her medications upon discharge. We are discontinuing lisinopril. All new medication prescriptions sent to her pharmacy. Please see my progress note from today for further details. MTDD
--- NOTE | 2017-10-12 13:47 | EKG ---
Test Reason : Blood Pressure : / mmHG Vent. Rate : 054 BPM Atrial Rate : 054 BPM P-R Int : 118 ms QRS Dur : 070 ms QT Int : 438 ms P-R-T Axes : 078 051 075 degrees QTc Int : 415 ms Sinus bradycardia Otherwise normal ECG Confirmed by TRENA EVANS ([id number]), editorial manager AMARILIS HENDERSON ([id number]) on 10/12/2017 1:47:10 PM Referred By: Confirmed By:TRENA EVANS
--- NOTE | 2017-10-12 13:47 | EKG ---
Test Reason : Blood Pressure : / mmHG Vent. Rate : 062 BPM Atrial Rate : 062 BPM P-R Int : 130 ms QRS Dur : 072 ms QT Int : 410 ms P-R-T Axes : 081 019 073 degrees QTc Int : 416 ms Normal sinus rhythm Nonspecific ST and T wave abnormality Abnormal ECG Confirmed by TRENA EVANS ([id number]), online editor AMARILIS HENDERSON ([id number]) on 10/12/2017 1:47:12 PM Referred By: Confirmed By:TRENA EVANS
== END 2017-10-10 12:02 | disposition home or self-care (01) | DRG 641 ==
LOC: ERS 04:29 → ERHOLD 07:50 → 2NO 18:25
PROVIDERS: ADMIT Internal Medicine; ATTEND Internal Medicine
DX: E87.5 Hyperkalemia (principal); I11.0 Hypertensive heart disease with heart failure; I95.9 Hypotension, unspecified; I42.9 Cardiomyopathy, unspecified; G82.20 Paraplegia, unspecified; I50.42 Chronic combined systolic (congestive) and diastolic (congestive) heart failure; J44.1 Chronic obstructive pulmonary disease with (acute) exacerbation; Z89.611 Acquired absence of right leg above knee; Z86.73 Personal history of transient ischemic attack (TIA), and cerebral infarction without residual deficits; Z89.612 Acquired absence of left leg above knee; F17.210 Nicotine dependence, cigarettes, uncomplicated; D64.9 Anemia, unspecified; I35.1 Nonrheumatic aortic (valve) insufficiency; D72.825 Bandemia; R00.1 Bradycardia, unspecified
CPT/HCPCS: 36415; 71045; 80048; 80053; 81001; 85025; 93005; 94640; 94760; 96361; 96374; 96375; A4216; J1650; J1815; J1940; J1956; J7070; J7611

== ENCOUNTER 2017-10-11 00:30 | Emergency (ER) | payer MEDICARE, MEDICAID ==
[2017-10-11] MEDS ORDERED: HYDROcodone/Acetaminophen 10/325 mg Tablet ONE (01:30)
[2017-10-11 01:48] LABS: Bilirubin Negative (Negative); Blood, Urine Negative (Negative); Clarity CLEAR (Clear); Glucose, Urine (Dipstick) Negative (Negative); Leukocyte Negative (Negative); Nitrite Negative (Negative); Protein, Urine (Dipstick) 30 mg/dL (Neg-Trace); Specific Gravity, Urine 1.008 (1.002-1.036); Urobilinogen 0.2 mg/dL (0.2-1.0)
[2017-10-11 01:50] LABS: Bacteria/HPF 2+ HPF (None Seen); Hyaline Casts/LPF 0-3 HYALINE CAST LPF (0-3 Hyaline); Squamous Epithelial 0-3 HPF (0-3)
[2017-10-11 02:07] LABS: #Eosinphils 0.2 thou/uL (0.0-0.7); #Lymphocytes 1.2 thou/uL (1.20-3.40); #Monocytes 0.6 thou/uL (0.11-0.59); #Neutrophils 3.2 thou/uL (1.40-6.50); %Eosinophils 4.2 % (0.0-10.0); %Lymphocytes 23.8 % (21.0-51.0); %Monocytes 10.9 % (0.0-10.0); Hemoglobin 9.8 g/dL (12.0-16.0); Mean Corpuscular HGB CONC 32.6 g/dL (32.0-36.0); Mean Corpuscular Hemoglobin 28.2 pg (27.0-31.0); Mean Corpuscular Volume 86.3 fl (81.0-99.0); Mean Platelet Volume 7.7 fL (7.4-10.4); Platelet Count 166 thou/uL (130-400); RBC Distribution Width 13.6 % (11.5-14.5); Red Blood Cell (RBC) Count 3.46 mill/uL (4.20-5.40); White Blood Cell (WBC) Count 5.2 thou/uL (4.8-10.8)
[2017-10-11 02:23] LABS: ALT (SGPT) 11 U/L (8-55); AST (SGOT) 13 U/L (5-34); Albumin 3.1 g/dL (3.4-4.8); Alkaline Phosphatase 72 U/L (40-150); Anion Gap 10 mmol/L (10-20); BUN (Urea Nitrogen) 26 mg/dL (9.8-20.1); Bilirubin, Total 0.3 mg/dL (0.2-1.2); CK (CPK) 25 U/L (29-168); Calc. Creatinine Clearance 0 mL/min (70-130); Calcium 8.8 mg/dL (7.8-10.44); Carbon Dioxide 32 mmol/L (23-31); Chloride 99 mmol/L (98-107); Estimated GFR-MDRD 61; Globulin 2.6 g/dL (2.4-3.5); Glucose 112 mg/dL (80-115); Lipase 22 U/L (8-78); Potassium 4.9 mmol/L (3.5-5.1); Protein, Total 5.7 g/dL (6.0-8.3); Sodium 136 mmol/L (136-145)
[2017-10-11] MEDS ORDERED: traMADol HCl 50 MG TAB ONE (03:13)
== END 2017-10-11 03:16 | disposition home or self-care (01) ==
LOC: ERS 00:30
DX: R10.9 Unspecified abdominal pain (principal); J43.9 Emphysema, unspecified; I11.0 Hypertensive heart disease with heart failure; I50.9 Heart failure, unspecified; F17.210 Nicotine dependence, cigarettes, uncomplicated; Z79.82 Long term (current) use of aspirin; Z79.52 Long term (current) use of systemic steroids; Z79.899 Other long term (current) drug therapy; Z86.73 Personal history of transient ischemic attack (TIA), and cerebral infarction without residual deficits
CPT/HCPCS: 36415; 80053; 81003; 81015; 82550; 83690; 85025; 87077; 87086; 87186; 99284

== ENCOUNTER 2017-10-31 12:14 | Emergency (ER) | payer MEDICARE, MEDICAID ==
[2017-10-31] MEDS ORDERED: Ondansetron HCl/PF 4 MG/2 ML Vial ONE (12:55)
[2017-10-31 12:59] LABS: #Eosinphils 0.3 thou/uL (0.0-0.7); #Lymphocytes 1.3 thou/uL (1.20-3.40); #Monocytes 0.5 thou/uL (0.11-0.59); #Neutrophils 5.4 thou/uL (1.40-6.50); %Basophils 0.6 % (0.0-1.0); %Eosinophils 3.4 % (0.0-10.0); %Lymphocytes 17.1 % (21.0-51.0); %Monocytes 6.8 % (0.0-10.0); %Neutrophils 72.2 % (42.0-75.0); Hemoglobin 10.1 g/dL (12.0-16.0); Mean Corpuscular HGB CONC 32.2 g/dL (32.0-36.0); Mean Corpuscular Hemoglobin 27.8 pg (27.0-31.0); Mean Corpuscular Volume 86.3 fl (81.0-99.0); Mean Platelet Volume 7.1 fL (7.4-10.4); Platelet Count 280 thou/uL (130-400); RBC Distribution Width 14.5 % (11.5-14.5); Red Blood Cell (RBC) Count 3.62 mill/uL (4.20-5.40); White Blood Cell (WBC) Count 7.4 thou/uL (4.8-10.8)
[2017-10-31 13:14] LABS: Troponin I 0.015 ng/mL (< 0.028)
[2017-10-31 13:16] LABS: ALT (SGPT) Less than 7 U/L (8-55); AST (SGOT) 16 U/L (5-34); Albumin 3.8 g/dL (3.4-4.8); Alkaline Phosphatase 81 U/L (40-150); Anion Gap 13 mmol/L (10-20); BUN (Urea Nitrogen) 22 mg/dL (9.8-20.1); Bilirubin, Total 0.3 mg/dL (0.2-1.2); CK (CPK) 32 U/L (29-168); Calc. Creatinine Clearance 0 mL/min (70-130); Calcium 9.9 mg/dL (7.8-10.44); Carbon Dioxide 20 mmol/L (23-31); Chloride 109 mmol/L (98-107); Estimated GFR-MDRD 65; Glucose 94 mg/dL (80-115); Potassium 5.3 mmol/L (3.5-5.1); Protein, Total 7.8 g/dL (6.0-8.3); Sodium 137 mmol/L (136-145)
[2017-10-31 13:44] LABS: Bilirubin Negative (Negative); Blood, Urine Large (Negative); Clarity TURBID (Clear); Glucose, Urine (Dipstick) Negative (Negative); Leukocyte Large (Negative); Nitrite Negative (Negative); Protein, Urine (Dipstick) 100 mg/dL (Neg-Trace); Urobilinogen 0.2 mg/dL (0.2-1.0); pH, Urine 6.5 (5.0-9.0)
[2017-10-31 13:47] LABS: Bacteria/HPF Rare-Few HPF (None Seen); Squamous Epithelial 0-3 HPF (0-3)
--- NOTE | 2017-10-31 13:51 | RAD ---
PORTABLE CHEST ONE VIEW: Date: 10-31-17 Time: 1:23 p.m. History: Chest pain. FINDINGS: Comparison made with exam of 10-08-17. Changes of CABG are again demonstrated. The heart size is normal. The lungs are expanded without conf luent areas of consolidation, pneumothoraces or pleural effusions. IMPRESSION: No acute process. POS: [facility]
[2017-10-31 13:57] LABS: Pathc Cast-AUWi Flag 4.32 (0-2.49)
[2017-10-31 14:09] LABS: Hyaline Casts/LPF 0-3 HYALINE CAST LPF (0-3 Hyaline); Other Casts/LPF None Seen LPF (0-3 Hyaline); Yeast-All Forms None Seen HPF (None Seen)
== END 2017-10-31 16:14 | disposition home or self-care (01) ==
LOC: ERS 12:14
DX: N12 Tubulo-interstitial nephritis, not specified as acute or chronic (principal); J43.9 Emphysema, unspecified; Z86.73 Personal history of transient ischemic attack (TIA), and cerebral infarction without residual deficits; I11.0 Hypertensive heart disease with heart failure; I50.9 Heart failure, unspecified; F17.210 Nicotine dependence, cigarettes, uncomplicated; Z79.82 Long term (current) use of aspirin; Z79.899 Other long term (current) drug therapy
CPT/HCPCS: 36415; 71045; 80053; 81003; 81015; 82550; 83605; 83690; 83880; 84484; 85025; 93005; 96361; 96374; 96375; J0696; J2270; J2405

== ENCOUNTER 2018-09-16 09:13 | Outpatient (CLI) | payer MEDICARE, MEDICAID ==
--- NOTE | 2018-09-16 13:37 | CT ---
CT CHEST WITHOUT CONTRAST: INDICATIONS: Follow up pulmonary nodule. COMPARISON: Prior chest CT from 02/27/2017 and 02/21/2016. TECHNIQUE: Multiple axial tomograms obtained through the chest without IV enhancement with multiplanar reconstru ction. FINDINGS: Review of the right lung again shows a 6 mm nodule in the posterior right lung base, which appears st able from the prior exam. There is also a 5 mm nodule in the superior right lower lobe, just beyond the infrahilar region, whic h appears stable. A 7 mm nodule in the right middle lobe, along the anterior fissure, is again seen. This nodular dens ity has a triangular shape on coronal imaging and appears stable. Right apical pleural thickening with a nodular component anteriorly is stable. Review of the left lung shows apical pleural thickening, which is stable. Some pleural nodular norman es posterior to the left upper lung are stable. Tiny nodular densities in the posterior left lung base, which measures in the 2 to 3 mm range, appear stable. Mild bronchiectasis in the right middle lobe, seen medially, with pleural-based atelectasis in the an terior right middle lobe, at the cardiophrenic angle, appears stable. There are calcified granuloma in both lungs, which is stable. The mediastinum is unremarkable. There are prominent lymph nodes in the left axilla, one of which measures approximately 1.2 cm. Asy mmetric density in the posterior left breast parenchyma is again seen, stable in appearance by CT. Images through the upper abdomen show bilateral renal cortical atrophy, more severe on the left, with a renal calcification on the left. Osseous structures are unremarkable. IMPRESSION: 1. Bilateral lung nodularity appears stable. 2. Bronchiectasis in the right middle lobe with anterior stranding and pleural-based atelectasis in the right cardiophrenic angle appears stable. 3. Enlarged lymph nodes in the left axilla, and asymmetric parenchymal density in the posterior left breast. Correlate with mammography and breast ultrasound. Recommend follow-up noncontrast chest CT. CODE T POS: [facility]
== END 2018-09-16 09:14 | disposition home or self-care (01) ==
LOC: BICCT 09:13
PROVIDERS: ATTEND Internal Medicine
DX: R91.8 Other nonspecific abnormal finding of lung field (principal); R91.1 Solitary pulmonary nodule; J47.9 Bronchiectasis, uncomplicated; J98.11 Atelectasis; R59.0 Localized enlarged lymph nodes; N64.89 Other specified disorders of breast; R92.2 Inconclusive mammogram
CPT/HCPCS: 71250

== ENCOUNTER 2018-10-08 09:47 | Outpatient (CLI) | payer MEDICARE, MEDICAID ==
--- NOTE | 2018-10-08 11:55 | ULT ---
ULTRASOUND OF THE LEFT AXILLA AND BREAST: HISTORY: Abnormal CT scan of chest dated 09/16/2018. FINDINGS: Correlation is made with the mammograms of today and chest CT of 09/16/2018. Sonographic evaluation of the left axilla demonstrates a 1.3 x 0.7 x 1.1 cm lymph node with loss of l entiform shape and somewhat rounded appearance. There is eccentric thickening of the cortex measurin g 6 mm. There is displacement of the fatty hilum. IMPRESSION: BI-RADS category 4, suspicious abnormality. Ultrasound-guided biopsy of the left axillary lymph node is recommended. Discussed in person with the patient and her daughter in person at 10:50 a.m. CODE CR POS: OFF
== END 2018-10-08 09:48 | disposition home or self-care (01) ==
LOC: BICMAMMO 09:47
PROVIDERS: ATTEND Orthopaedic Surgery Sports Medicine
DX: R59.9 Enlarged lymph nodes, unspecified (principal)
CPT/HCPCS: 77063; 77067

== ENCOUNTER 2018-12-05 02:41 | Inpatient (IN) | payer MEDICARE, MEDICAID ==
[2018-12-05] MEDS ORDERED: Atropine Sulfate 1 mg/10 ml Syringe ONE ×2 (02:57→03:05)
[2018-12-05 03:29] LABS: #Basophils 0.1 thou/uL (0.0-0.2); #Eosinphils 0.1 thou/uL (0.0-0.7); #Lymphocytes 1.4 thou/uL (1.20-3.40); #Monocytes 0.4 thou/uL (0.11-0.59); #Neutrophils 11.9 thou/uL (1.40-6.50); %Basophils 0.6 % (0.0-1.0); %Monocytes 3.1 % (0.0-10.0); %Neutrophils 85.2 % (42.0-75.0); Hemoglobin 9.5 g/dL (12.0-16.0); Mean Corpuscular HGB CONC 34.2 g/dL (32.0-36.0); Mean Corpuscular Hemoglobin 28.9 pg (27.0-31.0); Mean Corpuscular Volume 84.6 fL (78.0-98.0); Mean Platelet Volume 7.1 fL (7.4-10.4); Platelet Count 290 thou/uL (130-400); RBC Distribution Width 12.9 % (11.5-14.5); White Blood Cell (WBC) Count 13.9 thou/uL (4.8-10.8)
[2018-12-05 03:49] LABS: ALT (SGPT) 17 U/L (8-55); AST (SGOT) 27 U/L (5-34); Albumin 3.4 g/dL (3.4-4.8); Alkaline Phosphatase 86 U/L (40-150); Anion Gap 16 mmol/L (10-20); BUN (Urea Nitrogen) 34 mg/dL (9.8-20.1); Bilirubin, Total 0.2 mg/dL (0.2-1.2); CK (CPK) 54 U/L (29-168); Calc. Creatinine Clearance 0 mL/min (70-130); Calcium 8.3 mg/dL (7.8-10.44); Carbon Dioxide 16 mmol/L (23-31); Chloride 105 mmol/L (98-107); Estimated GFR-MDRD 21; Globulin 2.8 g/dL (2.4-3.5); Glucose 143 mg/dL (80-115); Potassium 6.3 mmol/L (3.5-5.1); Protein, Total 6.2 g/dL (6.0-8.3); Sodium 131 mmol/L (136-145)
[2018-12-05] MEDS ORDERED: Ondansetron ODT 4 MG TAB PO PRN (04:05)
[2018-12-05] MEDS ORDERED: Ondansetron PF 4 MG/2 ML Vial IVP PRN (04:05)
[2018-12-05] MEDS ORDERED: cefTRIAXone\\ROCEPHIN 2 GM VIAL ONE (04:12)
[2018-12-05] MEDS ORDERED: Dextrose 50% Abboject 50 ML SYRINGE SLOW IVP SCH (04:15)
[2018-12-05] MEDS ORDERED: Calcium Gluconate 4.6 MEQ in Sodium Chloride 0.9% 100 ML IVPB SCH (04:15)
[2018-12-05] MEDS ORDERED: Azithromycin 500 MG in Sodium Chloride 0.9% 250 ML 250 ML IVPB SCH (05:15)
[2018-12-05] MEDS ORDERED: Dextrose 50% Abboject 50 ML SYRINGE ONE (05:41)
[2018-12-05] MEDS ORDERED: methylPREDNISolone Sod Succ 40 MG VIAL IVP SCH (06:00)
[2018-12-05] MEDS ORDERED: methylPREDNISolone Sod Succ/PF 125 MG/2 ML VIAL IVP SCH (06:00)
[2018-12-05] MEDS ORDERED: Magnesium 2 GM/NS 0.9% 100 ML 2 GM in Premix Bag 1 BAG IVPB STA (06:01)
[2018-12-05] MEDS ORDERED: Magnesium 2 GM/50 ML 2 GM in Premix Bag 1 BAG IVPB SCH (06:15)
--- NOTE | 2018-12-05 07:20 | RAD ---
RADIOGRAPH CHEST 1 VIEW: Date: 12/05/18 Time: 0244 hours HISTORY: 63-year-old female with dyspnea. COMPARISON: 06/15/18. FINDINGS: Again noted is the hyperinflation consistent with COPD. The cardiac size is slightly larger on the cu rrent study compared to prior. Minimal blunting of the right lateral costophrenic angle appears to be new since the prior study. Prominent interstitial markings in the mid and lower lung zones on the cu rrent study appear to be new or slightly worse than on the prior study. No pneumothorax. No consolida tion. IMPRESSION: 1. Emphysema. 2. Borderline cardiomegaly, questionable tiny right pleural effusion, and questionable pulmonary int erstitial edema, raise the possibility of mild congestive heart failure or mild fluid volume overload . JN [] POS: [facility]
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
[2018-12-05 07:59] VITALS: BMI 55.4
[2018-12-05] MEDS: Enoxaparin Sodium 30 MG/0.3 ML SYRINGE SC SCH (08:58)
--- NOTE | 2018-12-05 10:50 | PDOC.PN ---
- Subjective Encounter Start Date: 12/05/18 Encounter Start Time: 10:48 Ms. Warren was seen today in follow-up of COPD exacerbation, and hyperkalemia. She says she still has some difficulty with breathing. - Objective Resuscitation Status - Order Detail: 12/05/18 04:05 Resuscitation Status Routine Resuscitation Status: FULL: Full Resuscitation MAR Reviewed: Yes Vital Signs & Weight: Vital Signs (12 hours) Temp Pulse Resp BP Pulse Ox 12/05/18 08:58 99 12/05/18 08:21 60 12 12/05/18 07:32 97.6 F 60 20 139/60 99 Weight Weight 80 lb 11.2 oz Result Diagrams: 12/05/18 03:11 12/05/18 03:11 Phys Exam - Physical Examination HEENT: PERRLA Respiratory: no wheezing, no rales, no rhonchi, clear to auscultation bilateral Cardiovascular: RRR, no significant murmur, no rub Gastrointestinal: soft, non-tender, no distention, positive bowel sounds Musculoskeletal: no edema Dx/Plan (1) COPD exacerbation Code(s): J44.1 - CHRONIC OBSTRUCTIVE PULMONARY DISEASE W (ACUTE) EXACERBATION Status: Acute (2) HTN (hypertension) Code(s): I10 - ESSENTIAL (PRIMARY) HYPERTENSION Status: Chronic Qualifiers: (3) Hyperkalemia Code(s): E87.5 - HYPERKALEMIA Status: Resolved - Plan * COPD exacerbation- mild- will transition her to oral Omnicef, and Prednisone * Continue Duonebs as needed * Hyperkalemia- she was given Kayexalate- will need to repeat the level * Acute renal failure- likely due to prerenal azotemia- will need cautious fluids- she has no IV access, after multiple attempts, and have been unable to draw blood- will Consult for Central line placement.
[2018-12-05] MEDS ORDERED: Lidocaine 1% (PF) 30 ML VIAL ONE (12:32)
[2018-12-05] MEDS: Sodium Chloride 0.9% 1,000 ML IV SCH (13:07)
--- NOTE | 2018-12-05 13:48 | RAD ---
FChest one view HISTORY: Central line placement. COMPARISON: 12/05/2018. FINDINGS: Cardiac silhouette is magnified by projection. Pulmonary vasculature is unremarkable. Lungs remain slightly hyperinflated. Nipple shadow overlies the left base. Mediastinum is midline. Tip of a right internal jugular central venous catheter overlies the right at rium. No evidence of pneumothorax. youth nutritional monitor leads overlie the chest. IMPRESSION: Right subclavian central venous catheter is in good radiographic position.
[2018-12-05 13:49] LABS: Anion Gap 13 mmol/L (10-20); BUN (Urea Nitrogen) 30 mg/dL (9.8-20.1); Calc. Creatinine Clearance 21 mL/min (70-130); Calcium 8.1 mg/dL (7.8-10.44); Carbon Dioxide 20 mmol/L (23-31); Chloride 108 mmol/L (98-107); Estimated GFR-MDRD 32; Glucose 89 mg/dL (80-115); Potassium 4.8 mmol/L (3.5-5.1); Sodium 136 mmol/L (136-145)
--- NOTE | 2018-12-05 18:26 | OP ---
DATE OF PROCEDURE: 12/05/2018 PREOPERATIVE DIAGNOSES: Bilateral AKA status, ileal conduit, colostomy, chronic obstructive pulmonary disease, dehydration, no IV access. POSTOPERATIVE DIAGNOSES: Bilateral AKA status, ileal conduit, colostomy, chronic obstructive pulmonary disease, dehydration, no IV access with inability to thread the J-wire after cannulating the left subclavian vein, successful placement right subclavian vein triple-lumen catheter. ANESTHESIA: Local 1% Xylocaine. Note, as I was prepping the patient, the patient's daughter was present and I had explained the procedure and the process, and was prepping the patient on the left, instructed the patient to hold her hands over her upper abdomen and pulled her gown down to expose the operative area. The daughter was at the bedside, pulling the patient's gown and blankets up to cover her breast compromising the sterile field. I asked the daughter to not do this and to not to pull the gown up. The daughter left stating that it was her right to cover her mother. DESCRIPTION OF PROCEDURE: After sterile prep on the left and local anesthetic infiltration, had difficulty cannulating the subclavian vein. She has had multiple lines in the past, could cannulate the vein on one occasion but J-wire not thread. I then prepared the right side upper clavicular area with ChloraPrep, draped in the routine fashion. 1% Xylocaine was infiltrated into the skin and subcutaneous tissue. Seldinger technique was used to place a right subclavian triple-lumen catheter. After cannulating the subclavian vein, removed the J-wire, securing the catheter with 3-0 nylon suture and sterile dressing applied. Each port aspirated blood and flushed with saline solution. Job ID: [id number]
[2018-12-05] MEDS: Acetaminophen 325 MG TAB PO PRN (18:59)
[2018-12-05] MEDS: Cefdinir 300 MG CAP PO SCH (20:42)
[2018-12-06] MEDS ORDERED: cefTRIAXone\\ROCEPHIN 1 GM in Sodium Chloride 0.9% 100 ML IVPB SCH (04:00)
[2018-12-06] MEDS: Sodium Chloride 0.9% 1,000 ML IV SCH ×2 (05:25→05:34)
[2018-12-06] MEDS: Acetaminophen 325 MG TAB PO PRN (05:32)
[2018-12-06 06:08] LABS: #Eosinphils 0.2 thou/uL (0.0-0.7); #Lymphocytes 1.3 thou/uL (1.20-3.40); #Monocytes 0.5 thou/uL (0.11-0.59); #Neutrophils 3.6 thou/uL (1.40-6.50); %Basophils 0.7 % (0.0-1.0); %Eosinophils 2.8 % (0.0-10.0); %Lymphocytes 24.1 % (21.0-51.0); %Monocytes 8.1 % (0.0-10.0); %Neutrophils 64.4 % (42.0-75.0); Hemoglobin 7.5 g/dL (12.0-16.0); Mean Corpuscular HGB CONC 32.9 g/dL (32.0-36.0); Mean Corpuscular Hemoglobin 27.7 pg (27.0-31.0); Mean Corpuscular Volume 84.1 fL (78.0-98.0); Mean Platelet Volume 6.9 fL (7.4-10.4); Platelet Count 204 thou/uL (130-400); RBC Distribution Width 12.9 % (11.5-14.5); Red Blood Cell (RBC) Count 2.69 mill/uL (4.20-5.40); White Blood Cell (WBC) Count 5.6 thou/uL (4.8-10.8)
[2018-12-06] MEDS: predniSONE 20 MG TAB PO SCH (09:13)
[2018-12-06] MEDS: Cefdinir 300 MG CAP PO SCH ×2 (09:13→21:05)
[2018-12-06] MEDS: Enoxaparin Sodium 30 MG/0.3 ML SYRINGE SC SCH (09:15)
[2018-12-06] MEDS ORDERED: Diazepam 2 MG TAB PO PRN ×2 (09:38→21:28)
[2018-12-06 09:56] LABS: Anion Gap 14 mmol/L (10-20); BUN (Urea Nitrogen) 26 mg/dL (9.8-20.1); Calc. Creatinine Clearance 24 mL/min (70-130); Calcium 8.4 mg/dL (7.8-10.44); Carbon Dioxide 22 mmol/L (23-31); Chloride 112 mmol/L (98-107); Estimated GFR-MDRD 38; Glucose 102 mg/dL (80-115); Magnesium 1.9 mg/dL (1.6-2.6); Sodium 143 mmol/L (136-145)
--- NOTE | 2018-12-06 14:44 | PDOC.PN ---
- Subjective Encounter Start Date: 12/06/18 Encounter Start Time: 14:41 Ms. Warren was seen today in follow-up of hyperkalemia, and COPD exacerbation. - Objective Resuscitation Status - Order Detail: 12/05/18 04:05 Resuscitation Status Routine Resuscitation Status: FULL: Full Resuscitation MAR Reviewed: Yes Vital Signs & Weight: Vital Signs (12 hours) Temp Pulse Resp BP Pulse Ox 12/06/18 11:31 97 12 12/06/18 09:16 97.9 F 97 18 160/60 H 97 12/06/18 08:18 100 12/06/18 08:16 84 12 12/06/18 04:00 98.4 F 93 20 144/60 H 99 Weight Weight 80 lb I&O: 12/05/18 12/06/18 12/07/18 06:59 06:59 06:59 Intake Total 1330 Output Total 1850 Balance -520 Result Diagrams: 12/06/18 05:35 12/06/18 09:25 Phys Exam - Physical Examination HEENT: PERRLA Respiratory: no wheezing, no rales, no rhonchi, clear to auscultation bilateral Cardiovascular: RRR, no significant murmur, no rub Gastrointestinal: soft, non-tender, no distention, positive bowel sounds Musculoskeletal: no edema, pulses present Dx/Plan (1) COPD exacerbation Code(s): J44.1 - CHRONIC OBSTRUCTIVE PULMONARY DISEASE W (ACUTE) EXACERBATION Status: Acute (2) HTN (hypertension) Code(s): I10 - ESSENTIAL (PRIMARY) HYPERTENSION Status: Chronic Qualifiers: (3) Hyperkalemia Code(s): E87.5 - HYPERKALEMIA Status: Resolved - Plan * COPD exacerbation- improving * Hyperkalemia- resolved * Acute kidney failure- improving * Anemia- normocytic- will check iron studies, and occult blood, re-check H&H in the AM and if less than 7.0 will transfuse .
[2018-12-06] MEDS ORDERED: Milk Of Magnesia 30 ML UDCUP PO PRN (15:00)
[2018-12-06] MEDS: Sodium Chloride 0.45% 1,000 ML IV SCH (15:04)
[2018-12-06] MEDS ORDERED: Amlodipine 10 MG TAB PO SCH (17:15)
[2018-12-06] MEDS ORDERED: Carvedilol 6.25 MG TAB PO SCH (17:15)
[2018-12-07 06:41] LABS: #Lymphocytes 0.8 thou/uL (1.20-3.40); #Monocytes 0.3 thou/uL (0.11-0.59); #Neutrophils 3.2 thou/uL (1.40-6.50); %Basophils 0.6 % (0.0-1.0); %Eosinophils 0.8 % (0.0-10.0); %Lymphocytes 17.2 % (21.0-51.0); %Monocytes 7.8 % (0.0-10.0); %Neutrophils 73.6 % (42.0-75.0); Hemoglobin 7.5 g/dL (12.0-16.0); Mean Corpuscular HGB CONC 33.7 g/dL (32.0-36.0); Mean Corpuscular Hemoglobin 28.3 pg (27.0-31.0); Mean Corpuscular Volume 83.9 fL (78.0-98.0); Mean Platelet Volume 7.1 fL (7.4-10.4); Platelet Count 204 thou/uL (130-400); RBC Distribution Width 12.9 % (11.5-14.5); Red Blood Cell (RBC) Count 2.64 mill/uL (4.20-5.40); White Blood Cell (WBC) Count 4.4 thou/uL (4.8-10.8)
[2018-12-07 07:00] LABS: Anion Gap 10 mmol/L (10-20); BUN (Urea Nitrogen) 26 mg/dL (9.8-20.1); Calc. Creatinine Clearance 27 mL/min (70-130); Calcium 8.5 mg/dL (7.8-10.44); Carbon Dioxide 27 mmol/L (23-31); Chloride 109 mmol/L (98-107); Estimated GFR-MDRD 45; Glucose 106 mg/dL (80-115); Iron 33 ug/dL (50-170); Sodium 141 mmol/L (136-145)
[2018-12-07] MEDS: Carvedilol 6.25 MG TAB PO SCH ×2 (09:33→22:11)
[2018-12-07] MEDS: Amlodipine 10 MG TAB PO SCH (09:33)
[2018-12-07] MEDS: predniSONE 20 MG TAB PO SCH (09:33)
[2018-12-07] MEDS: Cefdinir 300 MG CAP PO SCH ×2 (09:33→22:11)
[2018-12-07] MEDS: Enoxaparin Sodium 30 MG/0.3 ML SYRINGE SC SCH (09:34)
[2018-12-07] MEDS: Sodium Chloride 0.45% 1,000 ML IV SCH (11:13)
--- NOTE | 2018-12-07 11:37 | PDOC.PN ---
- Subjective Encounter Start Date: 12/07/18 Encounter Start Time: 11:31 Ms. Warren was seen today in follow-up of COPD exacerbation, Hyperkalemia, and anemia. She says she feels better from a respiratory standpoint, and is close to her baseline. - Objective Resuscitation Status - Order Detail: 12/05/18 04:05 Resuscitation Status Routine Resuscitation Status: FULL: Full Resuscitation MAR Reviewed: Yes Vital Signs & Weight: Vital Signs (12 hours) Temp Pulse Resp BP BP Pulse Ox 12/07/18 09:33 97 152/67 H 12/07/18 08:00 97.8 F 97 18 152/67 H 100 12/07/18 07:21 97 12/07/18 07:18 97 12 12/07/18 04:00 98 F 94 18 153/64 H 100 12/07/18 01:44 91 18 100 Weight Weight 78 lb I&O: 12/06/18 12/07/18 12/08/18 06:59 06:59 06:59 Intake Total 1330 2702 Output Total 1850 1750 Balance -520 952 Result Diagrams: 12/07/18 06:00 12/07/18 06:00 Phys Exam - Physical Examination HEENT: PERRLA Respiratory: no wheezing, no rales, no rhonchi, clear to auscultation bilateral Cardiovascular: RRR, no significant murmur, no rub Gastrointestinal: soft, non-tender, no distention, positive bowel sounds Musculoskeletal: no edema Dx/Plan (1) COPD exacerbation Code(s): J44.1 - CHRONIC OBSTRUCTIVE PULMONARY DISEASE W (ACUTE) EXACERBATION Status: Acute (2) HTN (hypertension) Code(s): I10 - ESSENTIAL (PRIMARY) HYPERTENSION Status: Chronic Qualifiers: (3) Hyperkalemia Code(s): E87.5 - HYPERKALEMIA Status: Resolved - Plan * Acute on chronic respiratory failure- improved * Hyperkalemia- improved * Anemia- this is consistent with iron deficiency anemia. She tells me she has been anemic before. She has never had a Colonoscopy, and tells me that it would be very difficult for her to perform the prep at home, due to her bilateral lower extremity amputations, and she has an Ostomy. Will consult GI to help evaluate- occult blood is pending * Will give a dose of IV iron ( risks of anaphylaxis explained) * Hyperkalemia- she says this is a new problem, and that her potassium usually runs low. It is beginning to trend back up, but is normal. Will STOP lisinopril as a esult of the elevated potassium and acute renal failure- may need to use hydralazine to replace * Acute renal failure- continues to improve * HTN- Amlodipine was re-started, and Carvediolol- if necessary will add Hydralazine.
[2018-12-07 11:54] LABS: Reticulocyte Count 2.8 % (0.5-1.5)
[2018-12-07] MEDS ORDERED: Iron, Sodium Ferric Gluconate 125 MG in Sodium Chloride 0.9% 100 ML IVPB SCH (13:00)
[2018-12-07] MEDS ORDERED: GoLYTELY 4,000 ml Bottle PO SCH (21:00)
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
[2018-12-08 06:51] LABS: Anion Gap 11 mmol/L (10-20); BUN (Urea Nitrogen) 27 mg/dL (9.8-20.1); Calc. Creatinine Clearance 29 mL/min (70-130); Calcium 8.7 mg/dL (7.8-10.44); Carbon Dioxide 27 mmol/L (23-31); Chloride 108 mmol/L (98-107); Estimated GFR-MDRD 47; Glucose 97 mg/dL (80-115); Potassium 4.2 mmol/L (3.5-5.1); Sodium 142 mmol/L (136-145)
[2018-12-08] MEDS: Amlodipine 10 MG TAB PO SCH (08:51)
[2018-12-08] MEDS: Carvedilol 6.25 MG TAB PO SCH (08:51)
[2018-12-08] MEDS: predniSONE 20 MG TAB PO SCH (08:51)
[2018-12-08] MEDS: Cefdinir 300 MG CAP PO SCH (08:51)
[2018-12-08] MEDS: Enoxaparin Sodium 30 MG/0.3 ML SYRINGE SC SCH (08:52)
--- NOTE | 2018-12-08 11:44 | PDOC.PN ---
- Subjective Encounter Start Date: 12/08/18 Encounter Start Time: 11:43 Ms. Warren was seen today in follow-up. She does not have any complaints. She was not able to complete the bowel prep, because it was making her nauseated, and she couldn't drink all of it. - Objective Resuscitation Status - Order Detail: 12/05/18 04:05 Resuscitation Status Routine Resuscitation Status: FULL: Full Resuscitation MAR Reviewed: Yes Vital Signs & Weight: Vital Signs (12 hours) Temp Pulse Resp BP Pulse Ox 12/08/18 10:30 97 16 12/08/18 08:00 97.8 F 102 H 19 157/68 H 100 12/08/18 07:51 95 16 12/08/18 03:48 97.6 F 107 H 18 167/63 H 100 12/08/18 02:29 97 12 12/08/18 02:26 98 12/08/18 00:00 97 132/57 L Weight Weight 81 lb I&O: 12/07/18 12/08/18 12/09/18 06:59 06:59 06:59 Intake Total 2702 2734 Output Total 1750 2275 Balance 952 459 Result Diagrams: 12/07/18 06:00 12/08/18 06:25 Phys Exam - Physical Examination HEENT: PERRLA Respiratory: no wheezing, no rales, no rhonchi, clear to auscultation bilateral Cardiovascular: RRR, no significant murmur, no rub Gastrointestinal: soft, non-tender, no distention, positive bowel sounds Dx/Plan (1) COPD exacerbation Code(s): J44.1 - CHRONIC OBSTRUCTIVE PULMONARY DISEASE W (ACUTE) EXACERBATION Status: Acute (2) HTN (hypertension) Code(s): I10 - ESSENTIAL (PRIMARY) HYPERTENSION Status: Chronic Qualifiers: (3) Hyperkalemia Code(s): E87.5 - HYPERKALEMIA Status: Resolved - Plan * COPD exacerbation- improved * Hyperkalemia- improved- will continue Off Lisinopril for now * Acute renal failure- resolved * Stable for discharge home..
--- NOTE | 2018-12-08 12:16 | DIS ---
DATE OF ADMISSION: 12/05/2018 DATE OF DISCHARGE: 12/08/2018 PRIMARY CARE PHYSICIAN: Wendy Lawrence, DISCHARGE DISPOSITION: Home. PRIMARY DISCHARGE DIAGNOSES: 1. Hyperkalemia. 2. Acute renal failure, resolved. 3. Acute on chronic respiratory failure due to chronic obstructive pulmonary disease exacerbation. 4. Anemia of chronic disease. 5. Iron deficiency. 6. Hypertension. DISCHARGE MEDICATIONS: 1. Please note that the patient was taken off lisinopril due to the hyperkalemia and acute renal failure. 2. She is to take Omnicef 300 mg twice daily for 3 additional days. 3. Continue aspirin 325 mg p.o. daily. 4. Amlodipine 10 mg daily. 5. Albuterol inhaler HFA, 2 puffs q.4 hours as needed. 6. Lasix 40 mg daily. 7. Fentanyl 25 mcg topical q.3 days. 8. Carvedilol 6.25 mg twice a day. 9. Atorvastatin 10 mg daily. CODE STATUS: Full code. ALLERGIES: TO HYDROCODONE. HOSPITAL COURSE: Ms. Warren is a 63-year-old female, who presented to the emergency room complaining of dyspnea and shortness of breath. She was having wheezing and associated cough. She was also found in the emergency room to have a dangerously high potassium of 6.3. She was treated for hyperkalemia, as well as chronic obstructive pulmonary disease exacerbation. She was also found to be anemic and her serum iron levels were low. Ferritin was normal, however, TIBC was a bit low. She had never had a colonoscopy, so colonoscopy was attempted. However, she was not able to complete the prep. By this time, she was clinically stable from the respiratory standpoint as well as her potassium. Therefore, this will have to be done on an outpatient basis and it was not emergent. Therefore, the patient is clinically stable for discharge and will be discharged home today. Job ID: [id number]
--- NOTE | 2018-12-08 14:37 | PRG ---
DATE OF SERVICE: 12/08/2018 REASON FOR CONSULTATION: Anemia, screening for malignant neoplasm of the colon. SUBJECTIVE: Overnight, the patient was unable to tolerate the GoLYTELY prep with her only being able to ingest approximately 2 cups of the GoLYTELY before exhibiting increased nausea and vomiting, at which point, she refused to drink any further and was not prepped appropriate for colonoscopy this morning. However, her shortness of breath has seen to improve significantly, and currently, denies any nausea, vomiting, fevers, chills, shortness of breath, chest pain, or GI bleeding. OBJECTIVE: VITAL SIGNS: Temperature 98.2, pulse 77, blood pressure 130/54, respiratory rate 18, saturating 100% on 2 L nasal cannula. GENERAL: The patient was lying in bed in a prone position, in no acute distress. Alert and oriented x4. CARDIOVASCULAR: Regular rate and rhythm. RESPIRATORY: Clear to auscultation bilaterally. ABDOMEN: Normoactive bowel sounds. Soft, nontender, and nondistended. Ileostomy and colostomy noted in the abdomen with no significant skin breakdown. EXTREMITIES: The patient has bilateral lower extremity amputation with multiple scars within the gluteal region. No cyanosis, clubbing, or edema. LABORATORY DATA: Chemistry with a sodium of 142, potassium 4.2, chloride 108, CO2 of 27, BUN 27, creatinine 1.16, glucose 97. IMAGING DATA: No current GI imaging is available for review. ASSESSMENT AND PLAN: The patient is a 63-year-old female with past medical history of chronic obstructive pulmonary disease, cerebrovascular accident, degenerative joint disease, hypertension, bilateral lower extremity amputation resulting in multiple flap formation, and colostomy and ileostomy placement, presenting with shortness of breath, anemia, and no prior screening colonoscopy. Anemia: 1. During the course of this hospitalization, the patient was noted to have a significant anemia, but with further characterization was noted to be more of an anemia of chronic disease rather than an iron deficiency anemia, which is more commonly seen with chronic gastrointestinal blood loss. At this time, she does not exhibit or endorse any evidence of gastrointestinal bleeding making this diagnosis much less likely at the current time. 2. Recommendations: a. We would continue to trend H and H and transfuse as necessary to maintain H and H while inpatient. b. We would continue to monitor clinically for signs of GI bleeding. Screening for malignant neoplasm of the colon: 1. Given the patient's unique circumstance and difficulty with transfers, she was attempted to be prepped for colonoscopy today, but was unable to tolerate the GoLYTELY prep. At this time, she is reluctant to further proceed with a repeat colonoscopy, but would rather prefer alternative methods of colorectal cancer screening. Given that her clinical condition is currently stable, she could be discharged to home with followup in the GI Clinic as an outpatient and scheduling her colonoscopy at that time. 2. Recommendations: a. We would recommend a colonoscopy in the near future, that can be performed as an outpatient. We will sign off at this time. Please call with any questions. Job ID: [id number]
[2018-12-08 15:55] VITALS: BP 150/67; TEMP 99
== END 2018-12-08 18:53 | disposition home or self-care (01) | DRG 190 ==
LOC: ERS 02:41 → 2NO 04:00
PROVIDERS: ADMIT Hospitalist; ATTEND Hospitalist
DX: J44.1 Chronic obstructive pulmonary disease with (acute) exacerbation (principal); J96.20 Acute and chronic respiratory failure, unspecified whether with hypoxia or hypercapnia; N17.9 Acute kidney failure, unspecified; E87.1 Hypo-osmolality and hyponatremia; E87.5 Hyperkalemia; R00.1 Bradycardia, unspecified; E83.42 Hypomagnesemia; I10 Essential (primary) hypertension; E86.0 Dehydration; Z89.612 Acquired absence of left leg above knee; Z89.611 Acquired absence of right leg above knee; Z99.81 Dependence on supplemental oxygen; F17.210 Nicotine dependence, cigarettes, uncomplicated; D64.9 Anemia, unspecified
CPT/HCPCS: 36415; 71045; 80048; 80053; 82550; 82728; 83540; 83550; 83735; 83880; 84484; 85025; 85046; 87040; 93005; 94640; 96365; 96367; 96375; 96376; 99292; J0456; J0461; J0696; J1610; J1642; J1650; J2001; J2405; J2916; J3475; J7050; J7620; Q0162

== ENCOUNTER 2019-02-25 17:28 | Emergency (ER) | payer MEDICARE, MEDICAID ==
--- NOTE | 2019-02-25 17:57 | RAD ---
XR Chest Pa Lat STANDARD HISTORY: Chest pain and high blood pressure COMPARISON: 09/08/2018 study FINDINGS: Heart size and mediastinum are within normal limits. Lungs appear hyperexpanded are no foca l infiltrative process seen. Mild arthritic changes of the spine are present. IMPRESSION: No active intrathoracic disease. Stable chest.
[2019-02-25 18:16] LABS: #Basophils 0.1 thou/uL (0.0-0.2); #Eosinphils 0.3 thou/uL (0.0-0.7); #Lymphocytes 1.9 thou/uL (1.20-3.40); #Monocytes 0.5 thou/uL (0.11-0.59); #Neutrophils 3.4 thou/uL (1.40-6.50); %Eosinophils 4.7 % (0.0-10.0); %Lymphocytes 30.7 % (21.0-51.0); %Monocytes 7.8 % (0.0-10.0); %Neutrophils 55.8 % (42.0-75.0); Hemoglobin 11.2 g/dL (12.0-16.0); Mean Corpuscular Hemoglobin 28.7 pg (27.0-31.0); Mean Corpuscular Volume 84.4 fL (78.0-98.0); Mean Platelet Volume 8.4 fL (7.4-10.4); Platelet Count 156 thou/uL (130-400); RBC Distribution Width 12.6 % (11.5-14.5); Red Blood Cell (RBC) Count 3.91 mill/uL (4.20-5.40); White Blood Cell (WBC) Count 6.2 thou/uL (4.8-10.8)
[2019-02-25 18:34] LABS: ALT (SGPT) 12 U/L (8-55); AST (SGOT) 17 U/L (5-34); Albumin 3.8 g/dL (3.4-4.8); Alkaline Phosphatase 91 U/L (40-150); Anion Gap 14 mmol/L (10-20); BUN (Urea Nitrogen) 24 mg/dL (9.8-20.1); Bilirubin, Total 0.5 mg/dL (0.2-1.2); CK (CPK) 60 U/L (29-168); Calc. Creatinine Clearance 0 mL/min (70-130); Calcium 9.3 mg/dL (7.8-10.44); Carbon Dioxide 19 mmol/L (23-31); Chloride 108 mmol/L (98-107); Estimated GFR-MDRD 62; Globulin 2.3 g/dL (2.4-3.5); Glucose 85 mg/dL (80-115); Potassium 4.6 mmol/L (3.5-5.1); Protein, Total 6.1 g/dL (6.0-8.3); Sodium 136 mmol/L (136-145)
[2019-02-25] MEDS ORDERED: Acetaminophen 500 MG TAB ONE (18:46)
[2019-02-25] MEDS ORDERED: Labetalol HCl 100 MG/20 ML VIAL ONE (18:46)
--- NOTE | 2019-02-25 19:45 | CT ---
CT Brain WO Con HISTORY: Headache and elevated blood pressure COMPARISON: 05/14/2014 study FINDINGS: There is mild ventricular and sulcal prominence. Encephalomalacia change in the right front al lobe is stable. There are no signs of intracerebral hemorrhage or extra-axial fluid collections. The mastoid air cells and visualized sinuses are clear. IMPRESSION: No acute intracranial abnormalities.
[2019-02-25] MEDS ORDERED: Furosemide 40 MG/4 ML VIAL ONE (19:57)
--- NOTE | 2019-02-28 09:35 | EKG ---
Test Reason : Blood Pressure : / mmHG Vent. Rate : 097 BPM Atrial Rate : 097 BPM P-R Int : 132 ms QRS Dur : 070 ms QT Int : 364 ms P-R-T Axes : 086 047 083 degrees QTc Int : 462 ms Normal sinus rhythm Right atrial enlargement Nonspecific ST and T wave abnormality Abnormal ECG Confirmed by DANNY MAY D.O. ([id number]), senior technical editor AMARILIS HENDERSON ([id number]) on 02/28/2019 9:34:57 AM Referred By: Confirmed By:DANNY MAY D.O.
== END 2019-02-26 15:07 | disposition home or self-care (01) ==
LOC: ERS 17:28
DX: I11.0 Hypertensive heart disease with heart failure (principal); I50.9 Heart failure, unspecified; E87.70 Fluid overload, unspecified; J44.9 Chronic obstructive pulmonary disease, unspecified; F17.210 Nicotine dependence, cigarettes, uncomplicated; Z79.899 Other long term (current) drug therapy; Z79.82 Long term (current) use of aspirin; Z86.73 Personal history of transient ischemic attack (TIA), and cerebral infarction without residual deficits
CPT/HCPCS: 36415; 70450; 71046; 80053; 82550; 83880; 84484; 85025; 93005; 96374; 96375; J1940

== ENCOUNTER 2019-05-14 05:29 | Emergency (ER) | payer MEDICARE, MEDICAID ==
[2019-05-14] MEDS ORDERED: methylPREDNISolone Sod Succ/PF 125 MG/2 ML VIAL ONE (06:47)
[2019-05-14 07:32] LABS: #Basophils 0.1 thou/uL (0.0-0.2); #Eosinphils 0.4 thou/uL (0.0-0.7); #Lymphocytes 2.6 thou/uL (1.20-3.40); #Monocytes 0.5 thou/uL (0.11-0.59); #Neutrophils 4.6 thou/uL (1.40-6.50); %Basophils 0.6 % (0.0-1.0); %Lymphocytes 31.8 % (21.0-51.0); %Monocytes 5.8 % (0.0-10.0); %Neutrophils 56.8 % (42.0-75.0); Mean Corpuscular HGB CONC 34.8 g/dL (32.0-36.0); Mean Corpuscular Hemoglobin 28.3 pg (27.0-31.0); Mean Corpuscular Volume 81.5 fL (78.0-98.0); Mean Platelet Volume 7.5 fL (7.4-10.4); Platelet Count 196 thou/uL (130-400); Red Blood Cell (RBC) Count 3.52 mill/uL (4.20-5.40); White Blood Cell (WBC) Count 8.2 thou/uL (4.8-10.8)
--- NOTE | 2019-05-14 07:51 | RAD ---
XR Chest 1 View Portable HISTORY: Shortness of breath COMPARISON: 02/25/2019 FINDINGS: The heart size is normal. The lungs are hyperexpanded without focal areas of consolidation, pneumothorax or pleural effusions. IMPRESSION: No radiographic evidence of acute cardiopulmonary process.
[2019-05-14 07:59] LABS: ALT (SGPT) 12 U/L (8-55); AST (SGOT) 22 U/L (5-34); Albumin 3.5 g/dL (3.4-4.8); Alkaline Phosphatase 87 U/L (40-150); Anion Gap 19 mmol/L (10-20); BUN (Urea Nitrogen) 24 mg/dL (9.8-20.1); Bilirubin, Total 0.3 mg/dL (0.2-1.2); CK (CPK) 38 U/L (29-168); Calc. Creatinine Clearance 0 mL/min (70-130); Calcium 9.1 mg/dL (7.8-10.44); Carbon Dioxide 14 mmol/L (23-31); Chloride 109 mmol/L (98-107); Estimated GFR-MDRD 52; Globulin 3.3 g/dL (2.4-3.5); Glucose 91 mg/dL (80-115); Potassium 6.2 mmol/L (3.5-5.1); Protein, Total 6.8 g/dL (6.0-8.3); Sodium 136 mmol/L (136-145)
[2019-05-14 08:18] LABS: Analyzer IN Cardio ER; Base Excess (BEa) -5.4 mEq/L (-2.0 to +3.0); CO2 Tension 38.7 mmHg (35.0-45.0); Calcium, Ionized 1.18 mmol/L (1.12-1.30); Carboxyhemoglobin (COHb) 0.3 gm% (0.0-3.0); Potassium - ABG Lab 5.36 mmol/L (3.70-5.30); pH, Arterial 7.33 (7.35-7.45)
[2019-05-14 08:22] LABS: ALV-art Gradient 97.365 (0-20); O2 Tension (PaO2) 53.9 mmHg (> 80.0); Puncture Site RRA
[2019-05-14 08:56] LABS: Anion Gap 14 mmol/L (10-20); BUN (Urea Nitrogen) 23 mg/dL (9.8-20.1); Calc. Creatinine Clearance 0 mL/min (70-130); Carbon Dioxide 20 mmol/L (23-31); Chloride 105 mmol/L (98-107); Estimated GFR-MDRD 54; Glucose 94 mg/dL (80-115); Potassium 5.3 mmol/L (3.5-5.1); Sodium 134 mmol/L (136-145)
--- NOTE | 2019-05-17 03:16 | EKG ---
Test Reason : Blood Pressure : / mmHG Vent. Rate : 082 BPM Atrial Rate : 082 BPM P-R Int : 116 ms QRS Dur : 060 ms QT Int : 374 ms P-R-T Axes : 000 063 108 degrees QTc Int : 436 ms Normal sinus rhythm Septal infarct , age undetermined Abnormal ECG Confirmed by CATRACHITO LOPES DO ([id number]), publication editor YANI DECKER ([id number]) on 05/17/2019 3:15:21 AM Referred By: Confirmed By:CATRACHITO LOPES DO
== END 2019-05-14 09:42 | disposition home or self-care (01) ==
LOC: ERS 05:29
DX: J44.1 Chronic obstructive pulmonary disease with (acute) exacerbation (principal); I10 Essential (primary) hypertension; F17.210 Nicotine dependence, cigarettes, uncomplicated; Z79.891 Long term (current) use of opiate analgesic; Z79.899 Other long term (current) drug therapy; Z79.82 Long term (current) use of aspirin
CPT/HCPCS: 36415; 71045; 80053; 82550; 82805; 83880; 84484; 85025; 93005; 94640; 96374; J2930; J7620